=== PATIENT | female | born 1980 | race Hispanic/Latino ===

== ENCOUNTER 2022-09-10 12:36 | Emergency (ER) | payer OTHER ==
[2022-09-10] MEDS ORDERED: IBUPROFEN 400 MG TAB ONE (13:27)
--- NOTE | 2022-09-10 14:01 | RAD REPORT ---
EXAM DESCRIPTION: RAD - Ankle Left 3 View -09/10/2022 1:43 pm CLINICAL HISTORY: Left ankle pain FINDINGS: No fracture or dislocation is seen. 10 millimeter calcification within the posterior subcutaneous tissues upper ankle likely benign
--- NOTE | 2022-09-10 14:03 | RAD REPORT ---
EXAM DESCRIPTION: RAD - Foot Left 3 View - 09/10/2022 1:43 pm CLINICAL HISTORY: Left Foot pain FINDINGS: No fracture or dislocation is seen. Small spur extends off posterior calcaneus
--- OUTSIDE RECORDS SUMMARY | 2022-09-10 14:19 | XMS REPORT | Continuity of Care Document ---
:1980 Author Organization [facility] t Address [address] [place] [address] Care Team Providers Name Role Phone Shekhar Crowell Attending Clinician Unavailable Cassidy Kerns Attending Clinician Unavailable Shekhar Crowell Admitting Clinician Unavailable Payers Payer Name Policy Type Policy Number Effective Date Expiration Date S [employer] [place] P [id number] 2020 00:00:00 Women(HTW) Problems This patient has no known problems. Allergies, Adverse Reactions, Alerts Allergy Allergy Status Severity Reaction(s) Onset Inactive Treating Comm ents Source Name Type Date Date Clinician No Known DA Active U [facility]18 [facility] 00:00: e [address] [place] [address] No Known DA Active U 2017-08 [facility]07 [place] [facility] 00:[facility]: [place] 00 [facility] No Known DA Active U [facility] 3-19 [facility] 00:00: e 00 [facility] Medications This patient has no known medications. Procedures Procedure Date / Time Performed Performing Clinician Buddy bethea [id number] 2021-08-24 00:00:00 [email or web address] [facility] [id number] 2021-08-24 00:00:00 [email or web address] [facility] [id number] 2021-08-24 00:00:00 [email or web address] [facility] [id number] 2021-08-24 00:00:00 [email or web address] [facility] Encounters Start End Encounter Admission Attending Care Care Encounter Source Date/Time Date/Time Type Type Clinicians Facility Department ID 2021-08-16 Outpatient [facility] [id number] [facility] 05:04:35 [facility] 2021-05-23 Outpatient [facility] [id number] [facility] 13:47:14 [id number] [facility] 2021-05-23 Outpatient [facility] [id number] [facility] 08:42:29 [id number] [facility] 2021-05-20 Outpatient [facility] [id number] [facility] 21:09:35 [id number] [facility] 2021-10-08 2021-10-08 Outpatient JIE Boateng DAYS [id number] [facility] 06:19:00 06:19:00 Shekhar Kaur [facility] 2021-08-24 2021-08-25 Inpatient JIE Boateng OBPP [id number] [facility] 06:48:00 18:08:00 Shekhar 98 [facility] 2020-09-18 2020-09-18 Office Luis F [facility] Encounter / [facility] 00:00:00 00:00:00 Visit Cassidy [id number] [facility] ramona [id number] [facility] Results Test Description Test Time Test Comments Results Result Comments Source CBC W/AUTO DIFF 2021-10-08 08:33:00 Test Item Value Reference Range Interpretation Comme nts WHITE BLOOD CELL (test code = WBC) 5.6 K/mm3 4.5-12.5 N RED BLOOD CELL (test code = RBC) 4.85 mill/mm3 3.7-5.2 N HEMOGLOBIN (test code = HGB) 10.8 gram/dL 11.5-15.5 L HEMATOCRIT (test code = HCT) 34.8 % 36.0-46.0 L MEAN CELL VOLUME (test code = MCV) 71.8 fL 80-98 L MEAN CELL HGB (test code = MCH) 22.3 picogram 27.0-33.0 L MEAN CELL HGB CONCETRATION (test code = MCHC) 31.0 gram/dL 33.0-36. 0 L RED CELL DISTRIBUTION WIDTH (test code = RDW) 22.8 % 11.6-16. 2 H RED CELL DISTRIBUTION WIDTH SD (test code = 57.6 fL 37.0-51.0 H RDW-SD) PLATELET COUNT (test code = PLT) 243 K/mm3 150-450 N MEAN PLATELET VOLUME (test code = MPV) 9.9 fL 6.7-11.0 N NEUTROPHIL % (test code = NT%) 57.6 % 39.0-69.0 N IMMATURE GRANULOCYTE % (test code = IG%) 0.2 % 0.0-5.0 N LYMPHOCYTE % (test code = LY%) 35.5 % 25.0-55.0 N MONOCYTE % (test code = MO%) 5.3 % 0.0-10.0 N EOSINOPHIL % (test code = EO%) 0.9 % 0.0-5.0 N BASOPHIL % (test code = BA%) 0.5 % 0.0-1.0 N NUCLEATED RBC % (test code = NRBC%) 0.0 % 0-0 N NEUTROPHIL # (test code = NT#) 3.23 K/mm3 1.8-7.7 N IMMATURE GRANULOCYTE # (test code = IG#) 0.01 x10 3/uL 0-0.03 N LYMPHOCYTE # (test code = LY#) 1.99 K/mm3 1.0-5.0 N MONOCYTE # (test code = MO#) 0.30 K/mm3 0-0.8 N EOSINOPHIL # (test code = EO#) 0.05 K/mm3 0.0-0.5 N BASOPHIL # (test code = BA#) 0.03 K/mm3 0.0-0.2 N NUCLEATED RBC # (test code = NRBC#) 0.00 K/mm3 0.0-0.1 N MANUAL DIFF REQUIRED (test code = MDIFF) NO, ONLY SCAN NEEDED DIFFERENTIAL [id number] 08:33:00 Test Item Value Reference Range Interpretation Comments STAIN ACCEPTABILITY (test STAIN ACCEPTABLE code = STN ACCEPTABLE) CABOT RINGS (test code = CAB) MORPHOLOGY COMMENT (test NORMAL code = MOC) PLATELET ESTIMATE (test code ADEQUATE = PLTEST) PLATELET MORPHOLOGY (test SIZE VARIABLE code = PLTMORPH) POLYCHROMASIA (test code = 1+ POLC) HYPOCHROMIA (test code = 1+ HYPO) POIKILOCYTOSIS (test code = 1+ POIK) ANISOCYTOSIS (test code = 2+ ANISO) MICROCYTOSIS (test code = 2+ MICR) HCG SERUM [id number] 07:55:00 Test Item Value Reference Range Interpretation Comments HCG SERUM QUAL (test NEGATIVE NEGATIVE This HC GQL test is NOT code = HCGQL) applicable for MALE patients.Check with nurse about probable order error.If Tumor Marker Test needed, nu rse should order test "HCG TU"(Test #[id number])---- - COVID 19 Asymptomatic IH [id number] 06:38:00 Test Item Value Reference Range Interpretation Comments COVID 19 Asymptomatic IH AG (test NEGATIVE NEGATIVE code = COVNONPUIAG) CBC W/AUTO [id number] 06:38:00 Test Item Value Reference Range Interpretation Comments WHITE BLOOD CELL (test code = 7.8 K/mm3 4.5-12.5 N WBC) RED BLOOD CELL (test code = 3.77 mill/mm3 3.7-5.2 N RBC) HEMOGLOBIN (test code = HGB) 7.9 gram/dL 11.5-15.5 L HEMATOCRIT (test code = HCT) 25.8 % 36.0-46.0 L MEAN CELL VOLUME (test code = 68.4 fL 80-98 L MCV) MEAN CELL HGB (test code = MCH) 21.0 picogram 27.0-33.0 L MEAN CELL HGB CONCETRATION 30.6 gram/dL 33.0-36.0 L (test code = MCHC) RED CELL DISTRIBUTION WIDTH 17.4 % 11.6-16.2 H (test code = RDW) RED CELL DISTRIBUTION WIDTH SD 42.9 fL 37.0-51.0 N (test code = RDW-SD) PLATELET COUNT (test code = 181 K/mm3 150-450 N PLT) MEAN PLATELET VOLUME (test code 11.6 fL 6.7-11.0 H = MPV) NEUTROPHIL % (test code = NT%) 73.3 % 39.0-69.0 H IMMATURE GRANULOCYTE % (test 0.3 % 0.0-5.0 N code = IG%) LYMPHOCYTE % (test code = LY%) 20.5 % 25.0-55.0 L MONOCYTE % (test code = MO%) 5.0 % 0.0-10.0 N EOSINOPHIL % (test code = EO%) 0.5 % 0.0-5.0 N BASOPHIL % (test code = BA%) 0.4 % 0.0-1.0 N NUCLEATED RBC % (test code = 0.0 % 0-0 N NRBC%) NEUTROPHIL # (test code = NT#) 5.73 K/mm3 1.8-7.7 N IMMATURE GRANULOCYTE # (test 0.02 x10 3/uL 0-0.03 N code = IG#) LYMPHOCYTE # (test code = LY#) 1.60 K/mm3 1.0-5.0 N MONOCYTE # (test code = MO#) 0.39 K/mm3 0-0.8 N EOSINOPHIL # (test code = EO#) 0.04 K/mm3 0.0-0.5 N BASOPHIL # (test code = BA#) 0.03 K/mm3 0.0-0.2 N NUCLEATED RBC # (test code = 0.00 K/mm3 0.0-0.1 N NRBC#) MANUAL DIFF REQUIRED (test code NO = MDIFF) SPECIMEN COMMENTS: day 1HIV 1 2 COMBO AG/AB [id number] 10:06:00 Test Item Value Reference Range Interpretation Comments HIV 1 2 COMBO AB/AG NON NONREACTIVE NONREACTIVE H IV P24 AG/AB SCREEN REACTIVE ANTIGEN NONREAC TIVE (test code = NONREACTIVE HIV 1&2 [id number]) ANTIBODY NONREA CTIVE THE HIV-1 P24 T EST HELPS DISTINGUI SH ACUTE HIV-1INFECTIONF ROM ESTABLISHED HIV -1 INFECTION WHEN THE SPECIMEN ISPOSI TIVE FOR HIV-1 P24 A NTIGEN. HIV-1 P24 ANTIG EN IS HIGHEST IN THE FIRST FEW WEEKS AFTERINFECTION AG HEPAT B [id number] 09:40:00 Test Item Value Reference Range Interpretation Comments AG HEPAT B SURF (test code NonReactive Index Nonreactive = HBSAG) URINALYSIS [id number] 09:11:00 Test Item Value Reference Range Interpretation Comments UA COLOR (test code = YELLOW YELLOW COLU) UA APPEARANCE (test code = CLOUDY CLEAR A APPU) UA GLUCOSE DIPSTICK (test NEGATIVE mg/dL NEGATIVE code = DGLUU) UA BILIRUBIN DIPSTICK NEGATIVE NEGATIVE (test code = BILU) UA KETONE DIPSTICK (test NEGATIVE mg/dL NEGATIVE code = KETU) UA SPECIFIC GRAVITY (test >=1.030 1.001-1.035 code = SGU) UA BLOOD DIPSTICK (test TRACE NEGATIVE code = JOSH) UA PH DIPSTICK (test code 6.0 5.0-8.0 = DC) UA PROTEIN DIPSTICK (test TRACE (15) mg/dL Neg-15 code = PROU) UA UROBILINIOGEN DIPSTICK 1 mg/dL (1+) mg/dL 0.0-0.2 (test code = URO) UA NITRITE DIPSTICK (test NEGATIVE NEGATIVE code = JACOB) UA LEUKOCYTE ESTERASE W 2+ NEGATIVE A REFLEX (test code = LEUUR) UA WBC (test code = WBCU) 5-10 per HPF 0-5 A UA RBC (test code = RBCU) 0-3 per HPF 0-5 UA EPITHELIAL CELLS (test per HPF Few code = EPIU) UA BACTERIA (test code = MODERATE per HPF NONE A BACU) AG HEPAT B [id number] 12:18:00 Test Item Value Reference Range Interpretation Comments AG HEPAT B SURF (test code NonReactive Index Nonreactive = HBSAG) AB [id number] 12:18:00 Test Item Value Reference Range Interpretation Comments AB TREPONEMA (test code = Negative Index NonReactive TREPAB) COVID 19 Asymptomatic IH [id number] 11:48:00 Test Item Value Reference Range Interpretation Comments COVID 19 Asymptomatic IH AG (test NEGATIVE NEGATIVE code = COVNONPUIAG) CBC W/AUTO [id number] 11:37:00 Test Item Value Reference Range Interpretation Comments WHITE BLOOD CELL (test code = 7.4 K/mm3 4.5-12.5 N WBC) RED BLOOD CELL (test code = 4.54 mill/mm3 3.7-5.2 N RBC) HEMOGLOBIN (test code = HGB) 9.5 gram/dL 11.5-15.5 L HEMATOCRIT (test code = HCT) 31.7 % 36.0-46.0 L MEAN CELL VOLUME (test code = 69.8 fL 80-98 L MCV) MEAN CELL HGB (test code = MCH) 20.9 picogram 27.0-33.0 L MEAN CELL HGB CONCETRATION 30.0 gram/dL 33.0-36.0 L (test code = MCHC) RED CELL DISTRIBUTION WIDTH 17.4 % 11.6-16.2 H (test code = RDW) RED CELL DISTRIBUTION WIDTH SD 43.8 fL 37.0-51.0 N (test code = RDW-SD) PLATELET COUNT (test code = 216 K/mm3 150-450 N PLT) MEAN PLATELET VOLUME (test code 10.4 fL 6.7-11.0 N = MPV) NEUTROPHIL % (test code = NT%) 69.2 % 39.0-69.0 H IMMATURE GRANULOCYTE % (test 0.3 % 0.0-5.0 N code = IG%) LYMPHOCYTE % (test code = LY%) 25.2 % 25.0-55.0 N MONOCYTE % (test code = MO%) 4.5 % 0.0-10.0 N EOSINOPHIL % (test code = EO%) 0.5 % 0.0-5.0 N BASOPHIL % (test code = BA%) 0.3 % 0.0-1.0 N NUCLEATED RBC % (test code = 0.0 % 0-0 N NRBC%) NEUTROPHIL # (test code = NT#) 5.09 K/mm3 1.8-7.7 N IMMATURE GRANULOCYTE # (test 0.02 x10 3/uL 0-0.03 N code = IG#) LYMPHOCYTE # (test code = LY#) 1.85 K/mm3 1.0-5.0 N MONOCYTE # (test code = MO#) 0.33 K/mm3 0-0.8 N EOSINOPHIL # (test code = EO#) 0.04 K/mm3 0.0-0.5 N BASOPHIL # (test code = BA#) 0.02 K/mm3 0.0-0.2 N NUCLEATED RBC # (test code = 0.00 K/mm3 0.0-0.1 N NRBC#) MANUAL DIFF REQUIRED (test code NO = MDIFF) LACTIC [id number] 16:15:00 Test Item Value Reference Range Interpretation Comments LACTIC ACID (test code = LACT) 1.2 mmol/L 0.4-1.9 N COMPREHENSIVE METABOLIC [id number] 16:03:00 Test Item Value Reference Range Interpretation Comments SODIUM (test code = 139 mmol/L 135-148 N NA) POTASSIUM (test code = 3.8 mmol/L 3.5-5.1 N K) CHLORIDE (test code = 102 mmol/L 101-109 N CL) CARBON DIOXIDE (test 27.0 mmol/L 21-32 N code = CO2) ANION GAP (test code = 14 mmol/L 10-20 N GAP) GLUCOSE (test code = 92 mg/dL 74-106 N GLU) BLOOD UREA NITROGEN 9 mg/dL 3-21 N (test code = BUN) CREATININE (test code 0.79 mg/dL 0.55-1.3 N = CREAT) BUN/CREATININE RATIO 11.4 10-20 N (test code = BUN/CREA) TOTAL PROTEIN (test 7.6 g/dL 6.5-8.4 N code = PROT) ALBUMIN (test code = 3.5 g/dL 3.4-4.8 N ALB) GLOBULIN (test code = 4.1 G/DL 1-10 N GLOB) ALBUMIN/GLOBULIN RATIO 0.9 RATIO 0.75-1.50 N (test code = A/G) CALCIUM (test code = 8.3 mg/dL 8.4-10.2 L CA) BILIRUBIN TOTAL (test 0.60 mg/dL 0.0-1.0 N code = BILT) SGOT/AST (test code = 11 U/L 6-32 N AST) SGPT/ALT (test code = 16 U/L 12-78 N Note: Change in ALT) REFERENCE RANGE due to new reagent method. ALKALINE PHOSPHATASE 60 U/L 38-126 N TOTAL (test code = ALKP) [id number] 16:03:00 Test Item Value Reference Range Interpretation Comments LIPASE (test code = LIP) 135 U/L 128-270 N URINALYSIS [id number] 16:00:00 Test Item Value Reference Range Interpretation Comments UA COLOR (test code = LIGHT YELLOW YELLOW COLU) UA APPEARANCE (test code Cloudy CLEAR A = APPU) UA GLUCOSE DIPSTICK (test norm mg/dL NEGATIVE code = DGLUU) UA BILIRUBIN DIPSTICK NEGATIVE mg/dL NEGATIVE (test code = BILU) UA KETONE DIPSTICK (test neg mg/dL NEGATIVE code = KETU) UA SPECIFIC GRAVITY (test 1.015 1.001-1.035 code = SGU) UA BLOOD DIPSTICK (test 10 (Trace) Lc/uL NEGATIVE A code = JOSH) UA PH DIPSTICK (test code 9.0 5.0-8.0 A = DC) UA PROTEIN DIPSTICK (test 30 (1+) mg/dL Neg-15 A code = PROU) UA UROBILINIOGEN DIPSTICK 1 mg/dL 0.0-0.2 A (test code = URO) UA NITRITE DIPSTICK (test POSITIVE NEGATIVE code = JACOB) UA LEUKOCYTE ESTERASE 500 Neal/uL (3+) uL NEGATIVE A DIPSTICK (test code = LEUU) UA WBC (test code = WBCU) 40-50 per HPF 0-5 A UA RBC (test code = RBCU) 0-3 per HPF 0-5 UA EPITHELIAL CELLS (test Few (2-5/hpf) per Few code = EPIU) HPF UA BACTERIA (test code = LOADED per HPF NONE A BACU) UA MUCUS (test code = FEW per LPF NONE-FEW MUCU) Urine Source? Clean CatchUR HCG [id number] 16:00:00 Test Item Value Reference Range Interpretation Comments UR HCG QUAL (test NEGATIVE This HCGQL test is NOT code = HCGQLU) applicable fo r MALE patients.Check with nurse about probable order error.If Tumor Marker Test needed, nu rse should order test "HCG TU"(Test #[id number])---- - Urine Source? Clean CatchDRUGS OF ABUSE SCREEN [id number] 16:00:00 Test Item Value Reference Range Interpretation Comments URN COCAINE (test code = COCAURN) NEGATIVE NEGATIVE URN CANNABINOIDS (test code = NEGATIVE NEGATIVE CANNABURN) URN AMPHETAMINE (test code = NEGATIVE NEGATIVE AMPHETURN) URN BARBITURATE (test code = NEGATIVE NEGATIVE BARBITURN) URN BENZODIAZEPINE (test code = NEGATIVE NEGATIVE BENZOURN) URN OPIATES (test code = OPIATURN) NEGATIVE NEGATIVE URN PHENCYCLIDINE (PCP) (test code = NEGATIVE NEGATIVE PHENCURN) Urine Source? Clean CatchURINALYSIS [id number] 15:57:00 Test Item Value Reference Range Interpretation Comments UA COLOR (test code = LIGHT YELLOW YELLOW COLU) UA APPEARANCE (test code Cloudy CLEAR A = APPU) UA GLUCOSE DIPSTICK (test norm mg/dL NEGATIVE code = DGLUU) UA BILIRUBIN DIPSTICK NEGATIVE mg/dL NEGATIVE (test code = BILU) UA KETONE DIPSTICK (test neg mg/dL NEGATIVE code = KETU) UA SPECIFIC GRAVITY (test 1.015 1.001-1.035 code = SGU) UA BLOOD DIPSTICK (test 10 (Trace) Lc/uL NEGATIVE A code = JOSH) UA PH DIPSTICK (test code 9.0 5.0-8.0 A = DC) UA PROTEIN DIPSTICK (test 30 (1+) mg/dL Neg-15 A code = PROU) UA UROBILINIOGEN DIPSTICK 1 mg/dL 0.0-0.2 A (test code = URO) UA NITRITE DIPSTICK (test POSITIVE NEGATIVE code = JACOB) UA LEUKOCYTE ESTERASE 500 Neal/uL (3+) uL NEGATIVE A DIPSTICK (test code = LEUU) UA WBC (test code = WBCU) 40-50 per HPF 0-5 A UA RBC (test code = RBCU) 0-3 per HPF 0-5 UA EPITHELIAL CELLS (test Few (2-5/hpf) per Few code = EPIU) HPF UA BACTERIA (test code = LOADED per HPF NONE A BACU) UA MUCUS (test code = FEW per LPF NONE-FEW MUCU) Urine Source? Clean CatchUR HCG [id number] 15:57:00 Test Item Value Reference Range Interpretation Comments UR HCG QUAL (test NEGATIVE This HCGQL test is NOT code = HCGQLU) applicable fo r MALE patients.Check with nurse about probable order error.If Tumor Marker Test needed, nu rse should order test "HCG TU"(Test #[id number])---- - Urine Source? Clean CatchDRUGS OF ABUSE SCREEN [id number] 15:57:00 Test Item Value Reference Range Interpretation Comments URN COCAINE (test code = COCAURN) NEGATIVE URN CANNABINOIDS (test code = NEGATIVE CANNABURN) URN AMPHETAMINE (test code = AMPHETURN) NEGATIVE URN BARBITURATE (test code = BARBITURN) NEGATIVE URN BENZODIAZEPINE (test code = NEGATIVE BENZOURN) URN OPIATES (test code = OPIATURN) NEGATIVE URN PHENCYCLIDINE (PCP) (test code = NEGATIVE PHENCURN) Urine Source? Clean CatchURINALYSIS [id number] 15:48:00 Test Item Value Reference Range Interpretation Comments UA COLOR (test code = LIGHT YELLOW YELLOW COLU) UA APPEARANCE (test code = Cloudy CLEAR A APPU) UA GLUCOSE DIPSTICK (test norm mg/dL NEGATIVE code = DGLUU) UA BILIRUBIN DIPSTICK NEGATIVE mg/dL NEGATIVE (test code = BILU) UA KETONE DIPSTICK (test neg mg/dL NEGATIVE code = KETU) UA SPECIFIC GRAVITY (test 1.015 1.001-1.035 code = SGU) UA BLOOD DIPSTICK (test 10 (Trace) Lc/uL NEGATIVE A code = JOSH) UA PH DIPSTICK (test code 9.0 5.0-8.0 A = DC) UA PROTEIN DIPSTICK (test 30 (1+) mg/dL Neg-15 A code = PROU) UA UROBILINIOGEN DIPSTICK 1 mg/dL 0.0-0.2 A (test code = URO) UA NITRITE DIPSTICK (test POSITIVE NEGATIVE code = JACOB) UA LEUKOCYTE ESTERASE 500 Neal/uL (3+) uL NEGATIVE A DIPSTICK (test code = LEUU) UA WBC (test code = WBCU) per HPF 0-5 UA RBC (test code = RBCU) per HPF 0-5 UA EPITHELIAL CELLS (test per HPF Few code = EPIU) UA BACTERIA (test code = per HPF NONE BACU) Urine Source? Clean CatchUR HCG [id number] 15:48:00 Test Item Value Reference Range Interpretation Comments UR HCG QUAL (test NEGATIVE This HCGQL test is NOT code = HCGQLU) applicable fo r MALE patients.Check with nurse about probable order error.If Tumor Marker Test needed, nu rse should order test "HCG TU"(Test #[id number])---- - Urine Source? Clean CatchDRUGS OF ABUSE SCREEN [id number] 15:48:00 Test Item Value Reference Range Interpretation Comments URN COCAINE (test code = COCAURN) NEGATIVE URN CANNABINOIDS (test code = NEGATIVE CANNABURN) URN AMPHETAMINE (test code = AMPHETURN) NEGATIVE URN BARBITURATE (test code = BARBITURN) NEGATIVE URN BENZODIAZEPINE (test code = NEGATIVE BENZOURN) URN OPIATES (test code = OPIATURN) NEGATIVE URN PHENCYCLIDINE (PCP) (test code = NEGATIVE PHENCURN) Urine Source? Clean CatchURINALYSIS [id number] 15:47:00 Test Item Value Reference Range Interpretation Comments UA COLOR (test code = LIGHT YELLOW YELLOW COLU) UA APPEARANCE (test code = Cloudy CLEAR A APPU) UA GLUCOSE DIPSTICK (test norm mg/dL NEGATIVE code = DGLUU) UA BILIRUBIN DIPSTICK NEGATIVE mg/dL NEGATIVE (test code = BILU) UA KETONE DIPSTICK (test neg mg/dL NEGATIVE code = KETU) UA SPECIFIC GRAVITY (test 1.015 1.001-1.035 code = SGU) UA BLOOD DIPSTICK (test 10 (Trace) Lc/uL NEGATIVE A code = JOSH) UA PH DIPSTICK (test code 9.0 5.0-8.0 A = DC) UA PROTEIN DIPSTICK (test 30 (1+) mg/dL Neg-15 A code = PROU) UA UROBILINIOGEN DIPSTICK 1 mg/dL 0.0-0.2 A (test code = URO) UA NITRITE DIPSTICK (test POSITIVE NEGATIVE code = JACOB) UA LEUKOCYTE ESTERASE 500 Neal/uL (3+) uL NEGATIVE A DIPSTICK (test code = LEUU) UA WBC (test code = WBCU) per HPF 0-5 UA RBC (test code = RBCU) per HPF 0-5 UA EPITHELIAL CELLS (test per HPF Few code = EPIU) UA BACTERIA (test code = per HPF NONE BACU) Urine Source? Clean CatchUR HCG [id number] 15:47:00 Test Item Value Reference Range Interpretation Comments UR HCG QUAL (test code = HCGQLU) Urine Source? Clean CatchDRUGS OF ABUSE SCREEN [id number] 15:47:00 Test Item Value Reference Range Interpretation Comments URN COCAINE (test code = COCAURN) NEGATIVE URN CANNABINOIDS (test code = NEGATIVE CANNABURN) URN AMPHETAMINE (test code = AMPHETURN) NEGATIVE URN BARBITURATE (test code = BARBITURN) NEGATIVE URN BENZODIAZEPINE (test code = NEGATIVE BENZOURN) URN OPIATES (test code = OPIATURN) NEGATIVE URN PHENCYCLIDINE (PCP) (test code = NEGATIVE PHENCURN) Urine Source? Clean CatchCBC W/AUTO [id number] 15:43:00 Test Item Value Reference Range Interpretation Comments WHITE BLOOD CELL (test code = 11.8 K/mm3 4.5-12.5 N WBC) RED BLOOD CELL (test code = 4.64 mill/mm3 3.7-5.2 N RBC) HEMOGLOBIN (test code = HGB) 11.2 gram/dL 11.5-15.5 L HEMATOCRIT (test code = HCT) 35.2 % 36.0-46.0 L MEAN CELL VOLUME (test code = 75.9 fL 80-98 L MCV) MEAN CELL HGB (test code = MCH) 24.1 picogram 27.0-33.0 L MEAN CELL HGB CONCETRATION 31.8 gram/dL 33.0-36.0 L (test code = MCHC) RED CELL DISTRIBUTION WIDTH 15.0 % 11.6-16.2 N (test code = RDW) RED CELL DISTRIBUTION WIDTH SD 41.0 fL 37.0-51.0 N (test code = RDW-SD) PLATELET COUNT (test code = 272 K/mm3 150-450 N PLT) MEAN PLATELET VOLUME (test code 10.7 fL 6.7-11.0 N = MPV) NEUTROPHIL % (test code = NT%) 84.5 % 39.0-69.0 H LYMPHOCYTE % (test code = LY%) 10.0 % 25.0-55.0 L MONOCYTE % (test code = MO%) 4.6 % 0.0-10.0 N EOSINOPHIL % (test code = EO%) 0.3 % 0.0-5.0 N BASOPHIL % (test code = BA%) 0.3 % 0.0-1.0 N NEUTROPHIL # (test code = NT#) 9.92 K/mm3 1.8-7.7 H LYMPHOCYTE # (test code = LY#) 1.17 K/mm3 1.0-5.0 N MONOCYTE # (test code = MO#) 0.54 K/mm3 0-0.8 N EOSINOPHIL # (test code = EO#) 0.04 K/mm3 0.0-0.5 N BASOPHIL # (test code = BA#) 0.04 K/mm3 0.0-0.2 N MANUAL DIFF REQUIRED (test code NO = MDIFF)
--- NOTE | 2022-09-10 14:49 | ER ---
Nurse's Notes [facility] Name: Coby Rueda Age: 42 yrs Sex: Female : 1980 Arrival Date: 09/10/2022 Time: 12:39 Bed 5 Private MD: Diagnosis: Sprain of ankle Presentation: 09/10 12:42 Chief complaint: Rolled left ankle while walking this morning, c/o left ankle pain hb 9/10. Coronavirus screen: At this time, the client does not indicate any symptoms associated with coronavirus-19. Ebola Screen: No symptoms or risks identified at this time. Initial Sepsis Screen: Does the patient meet any 2 criteria? No. Patient's initial sepsis screen is negative. Does the patient have a suspected source of infection? No. Patient's initial sepsis screen is negative. Risk Assessment: Do you want to hurt yourself or someone else? Patient reports no desire to harm self or others. Onset of symptoms was September 10, 2022. 12:42 Method Of Arrival: Ambulatory hb 12:42 Acuity: KIERRA 4 hb Triage Assessment: 13:15 General: Appears in no apparent distress. uncomfortable, Behavior is calm, cooperative, bp appropriate for age. Pain: Complains of pain in left lateral ankle. EENT: No deficits noted. Neuro: No deficits noted. Cardiovascular: No deficits noted. Respiratory: No deficits noted. GI: No signs and/or symptoms were reported involving the gastrointestinal system. : No signs and/or symptoms were reported regarding the genitourinary system. Derm: No deficits noted. Musculoskeletal: Circulation, motion, and sensation intact. Reports pain in left lateral ankle. Historical: - Allergies: 12:44 No Known Allergies; hb - Home Meds: 12:44 None [Active]; hb - PMHx: 12:44 None; hb - PSHx: 12:44 None; hb - Immunization history:: Adult Immunizations up to date. - Social history:: Smoking status: Patient reports the use of cigarette tobacco products, smokes one-half pack cigarettes per day. Screenin:28 [facility] ED Fall Risk Assessment (Adult) History of falling in the last 3 months, bp including since admission No falls in past 3 months (0 pts). Abuse screen: Denies threats or abuse. Denies injuries from another. Nutritional screening: No deficits noted. Tuberculosis screening: No symptoms or risk factors identified. Assessment: 13:15 General: SEE TRIAGE NOTE. bp 15:03 Reassessment: PT DC HOME WITH FAMILY. bp Vital Signs: 12:42 BP 139 / 83; Pulse 102; Resp 16; Temp 98.3; Pulse Ox 98% on R/A; Weight 85.73 kg; hb Height 5 ft. 4 in. (162.56 cm); Pain 9/10; 15:03 BP 129 / 81; Pulse 92; Resp 16; Pulse Ox 98% ; bp 12:42 Body Mass Index 32.44 (85.73 kg, 162.56 cm) hb ED Course: 12:39 Patient arrived in ED. as 12:41 Juwan Chavez PA is PHCP. [facility] 12:41 Roney Hope MD is Attending Physician. [facility] 12:44 Triage completed. hb 12:44 Arm band placed on. hb 13:17 Samuel Dong, EV is Primary Nurse. ll1 13:26 Kiran Correa, EV is Primary Nurse. bp 13:28 Patient has correct armband on for positive identification. Bed in low position. Call bp light in reach. Side rails up X2. 13:45 Ankle Left 3 View XRAY In Process Unspecified. EDMS 13:45 Foot Left 3 View XRAY In Process Unspecified. EDMS 14:48 Conor Tovar MD is Referral Physician. [facility] 15:03 No provider procedures requiring assistance completed. Patient did not have IV access bp during this emergency room visit. Administered Medications: 13:25 Drug: Ibuprofen 800 mg Route: PO; bp 14:37 Follow up: Response: No adverse reaction; Pain is decreased ll1 Medication: 15:03 VIS not applicable for this client. bp Outcome: 14:48 Discharge ordered by . jmm 15:03 Discharged to home ambulatory. bp 15:03 Condition: stable 15:03 Discharge instructions given to patient, Instructed on discharge instructions, follow up and referral plans. medication usage, crutch walking, Demonstrated understanding of instructions, follow-up care, medications, crutch walking, Prescriptions given X 2. 15:05 Patient left the ED. bp Signatures: Dispatcher [employer] EDMS Juwan Chavez PA PA Antonietta Mcbride Heather, RN RN hb Kiran Correa RN RN bp Samuel Dong, RN RN ll1
--- NOTE | 2022-09-10 14:49 | EDPHYS ---
Physician Documentation [facility] Name: Coby Mohit Age: 42 yrs Sex: Female : 1980 Arrival Date: 09/10/2022 Time: 12:39 Bed 5 Private MD: ED Physician Roney Hope Historical: - Allergies: 09/10 12:44 No Known Allergies; hb - Home Meds: 12:44 None [Active]; hb - PMHx: 12:44 None; hb - PSHx: 12:44 None; hb - Immunization history:: Adult Immunizations up to date. - Social history:: Smoking status: Patient reports the use of cigarette tobacco products, smokes one-half pack cigarettes per day. Vital Signs: 12:42 BP 139 / 83; Pulse 102; Resp 16; Temp 98.3; Pulse Ox 98% on R/A; Weight 85.73 kg; hb Height 5 ft. 4 in. (162.56 cm); Pain 9/10; 15:03 BP 129 / 81; Pulse 92; Resp 16; Pulse Ox 98% ; bp 12:42 Body Mass Index 32.44 (85.73 kg, 162.56 cm) hb MDM: 12:48 Patient medically screened. [facility] 14:47 Data reviewed: vital signs, nurses notes. Independent interpretation of the following [facility] test(s) in the Emergency Department X-Ray: My interpretation is no fracture appreciated. Counseling: I had a detailed discussion with the patient and/or guardian regarding: the historical points, exam findings, and any diagnostic results supporting the discharge/admit diagnosis, radiology results, the need for outpatient follow up, to return to the emergency department if symptoms worsen or persist or if there are any questions or concerns that arise at home. 09/10 12:45 Order name: Ankle Left 3 View XRAY; Complete Time: 14:02 09/10 12:48 Order name: Foot Left 3 View XRAY; Complete Time: 14:03 [facility] 09/10 12:48 Order name: Ice pack; Complete Time: 13:25 [facility] 09/10 14:22 Order name: Hussain wrap-joint; Complete Time: 14:37 [facility] 09/10 14:22 Order name: Crutches; Complete Time: 14:37 [facility] Administered Medications: 13:25 Drug: Ibuprofen 800 mg Route: PO; bp 14:37 Follow up: Response: No adverse reaction; Pain is decreased ll1 Disposition Summary: 09/10/22 14:48 Discharge Ordered Location: Home [facility] Condition: Stable [facility] Diagnosis - Sprain of ankle [facility] Followup: [facility] - With: Conor Tovar MD - When: 2 - 3 days - Reason: Recheck today's complaints, Continuance of care, Re-evaluation by your physician Discharge Instructions: - Ankle Sprain [facility] - Discharge Summary Sheet iw Forms: - Medication Reconciliation Form [facility] - Thank You Letter [facility] - Work release form iw - Antibiotic Education [facility] - Prescription Opioid Use [facility] Prescriptions: - Diclofenac Sodium 75 mg Oral Tablet Sustained Release - take 1 tablet by ORAL route 2 times per day; 30 tablet; Refills: 0, Product [facility] Selection Permitted - orphenadrine citrate 100 mg Oral Tablet Sustained Release - take 1 tablet by ORAL route 2 times per day As needed; 20 tablet; Refills: 0, [facility] Product Selection Permitted Signatures: Dispatcher [employer] Juwan Mcknight PA PA Annie Soriano, RN RN Kiran Correa, EV RN Samuel Reyez RN ll1
[2022-09-10 15:12] VITALS: TEMP 98.3; O2SAT 98
[2022-09-10 15:14] VITALS: BP 129/81
== END 2022-09-10 15:05 | disposition home or self-care (01) ==
LOC: ER 12:36
DX: S93.402A Sprain of unspecified ligament of left ankle, initial encounter (principal); F17.210 Nicotine dependence, cigarettes, uncomplicated
CPT/HCPCS: 99284

== ENCOUNTER 2023-01-18 21:34 | Emergency (ER) | payer OTHER ==
--- OUTSIDE RECORDS SUMMARY | 2023-01-18 21:38 | XMS REPORT | Continuity of Care Document ---
:1980 Author Organization [facility] t Address [address] [facility] [address] [place] [address] Care Team Providers Name Role Phone Shekhar Crowell Attending Clinician Unavailable Cassidy Kerns Attending Clinician Unavailable Shekhar Crowell Admitting Clinician Unavailable Payers Payer Name Policy Type Policy Number Effective Date Expiration Date S ourcl [employer] [place] P [id number] 2020 00:00:00 Women(HTW) Problems This patient has no known problems. Allergies, Adverse Reactions, Alerts Allergy Allergy Status Severity Reaction(s) Onset Inactive Treating Comm ents Source Name Type Date Date Clinician No Known DA Active U [facility]18 [facility] 00:00: e 00 [facility] No Known DA Active U 2017-08 [facility]07 [place] [facility] 00:[place]: [place] 00 [facility] No Known DA Active U [facility] 3-19 [facility] 00:[facility]: e 00 [facility] Medications This patient has no known medications. Procedures Procedure Date / Time Performed Performing Clinician Danya neema [id number] 2021-08-24 00:00:00 [facility]CA.02 [facility] [id number] 2021-08-24 00:00:00 [facility]CA.02 [facility] [id number] 2021-08-24 00:00:00 [facility]02 [facility] [id number] 2021-08-24 00:00:00 HERCA.02 [facility] Encounters Start End Encounter Admission Attending Care Care Encounter Source Date/Time Date/Time Type Type Clinicians Facility Department ID 2021-08-16 Outpatient [facility] [id number] [facility] 05:04:35 [facility] 2021-05-23 Outpatient [facility] [id number] [facility] 13:47:14 [id number] [facility] 2021-05-23 Outpatient [facility] [id number] [facility] 08:42:29 [id number] [facility] 2021-05-20 Outpatient [facility] [id number] [facility] 21:09:35 [id number] [facility] 2021-10-08 2021-10-08 Outpatient JIE Boateng DAYS [id number] [facility] 06:19:00 06:19:00 Shekhar Natasha [facility] 2021-08-24 2021-08-25 Inpatient AMBROCIO Boateng OBPP [id number] [facility] 06:48:00 18:08:00 Shekhar 98 [facility] 2020-09-18 2020-09-18 Office Luis F [facility] Encounter / [facility] 00:00:00 00:00:00 Visit Cassidy [id number] [facility] [id number] [facility] Results Test Description Test Time Test Comments [...] = MDIFF) NO, ONLY SCAN NEEDED DIFFERENTIAL [id number] 08:33:00 Test Item Value Reference Range Interpretation [...] (test code = 2+ MICR) HCG SERUM [id number] 07:55:00 Test Item Value Reference Range Interpretation Comments HCG SERUM QUAL (test NEGATIVE NEGATIVE This HC GQL test is NOT code = HCGQL) applicable for MALE patients.Check with nurse about probable order error.If Tumor Marker Test needed, nu rse should order test "HCG TU"(Test #550.96707)---- - COVID 19 Asymptomatic IH [id number] 06:38:00 Test Item Value Reference Range Interpretation Comments COVID 19 Asymptomatic IH AG (test NEGATIVE NEGATIVE code = COVNONPUIAG) CBC W/AUTO [id number] 06:38:00 Test Item Value Reference Range Interpretation [...] COMMENTS: day 1HIV 1 2 COMBO AG/AB [id number] 10:06:00 Test Item Value Reference Range Interpretation Comments HIV 1 2 COMBO AB/AG NON NONREACTIVE NONREACTIVE H IV P24 AG/AB SCREEN REACTIVE ANTIGEN NONREAC TIVE (test code = NONREACTIVE HIV 1&2 [id number]) ANTIBODY NONREA CTIVE THE HIV-1 P24 T EST HELPS DISTINGUI SH ACUTE HIV-1INFECTIONF ROM ESTABLISHED HIV -1 INFECTION WHEN THE SPECIMEN ISPOSI TIVE FOR HIV-1 P24 A NTIGEN. HIV-1 P24 ANTIG EN IS HIGHEST IN THE FIRST FEW WEEKS AFTERINFECTION AG HEPAT B [id number] 09:40:00 Test Item Value Reference Range Interpretation Comments AG HEPAT B SURF (test code NonReactive Index Nonreactive = HBSAG) URINALYSIS [id number] 09:11:00 Test Item Value Reference Range Interpretation [...] HPF NONE A BACU) AG HEPAT B [id number] 12:18:00 Test Item Value Reference Range Interpretation Comments AG HEPAT B SURF (test code NonReactive Index Nonreactive = HBSAG) AB [id number] 12:18:00 Test Item Value Reference Range Interpretation Comments AB TREPONEMA (test code = Negative Index NonReactive TREPAB) COVID 19 Asymptomatic IH [id number] 11:48:00 Test Item Value Reference Range Interpretation Comments COVID 19 Asymptomatic IH AG (test NEGATIVE NEGATIVE code = COVNONPUIAG) CBC W/AUTO [id number] 11:37:00 Test Item Value Reference Range Interpretation [...] REQUIRED (test code NO = MDIFF) LACTIC [id number] 16:15:00 Test Item Value Reference Range Interpretation Comments LACTIC ACID (test code = LACT) 1.2 mmol/L 0.4-1.9 N COMPREHENSIVE METABOLIC [id number] 16:03:00 Test Item Value Reference Range Interpretation [...] 38-126 N TOTAL (test code = ALKP) [id number] 16:03:00 Test Item Value Reference Range Interpretation Comments LIPASE (test code = LIP) 135 U/L 128-270 N URINALYSIS [id number] 16:00:00 Test Item Value Reference Range Interpretation [...] NONE-FEW MUCU) Urine Source? Clean CatchUR HCG [id number] 16:00:00 Test Item Value Reference Range Interpretation Comments UR HCG QUAL (test NEGATIVE This HCGQL test is NOT code = HCGQLU) applicable fo r MALE patients.Check with nurse about probable order error.If Tumor Marker Test needed, nu rse should order test "HCG TU"(Test #550.09082)---- - Urine Source? Clean CatchDRUGS OF ABUSE SCREEN [id number] 16:00:00 Test Item Value Reference Range Interpretation [...] NEGATIVE NEGATIVE PHENCURN) Urine Source? Clean CatchURINALYSIS [id number] 15:57:00 Test Item Value Reference Range Interpretation [...] NONE-FEW MUCU) Urine Source? Clean CatchUR HCG [id number] 15:57:00 Test Item Value Reference Range Interpretation Comments UR HCG QUAL (test NEGATIVE This HCGQL test is NOT code = HCGQLU) applicable fo r MALE patients.Check with nurse about probable order error.If Tumor Marker Test needed, nu rse should order test "HCG TU"(Test #550.45475)---- - Urine Source? Clean CatchDRUGS OF ABUSE SCREEN [id number] 15:57:00 Test Item Value Reference Range Interpretation Comments URN COCAINE (test code = COCAURN) NEGATIVE URN CANNABINOIDS (test code = NEGATIVE CANNABURN) URN AMPHETAMINE (test code = AMPHETURN) NEGATIVE URN BARBITURATE (test code = BARBITURN) NEGATIVE URN BENZODIAZEPINE (test code = NEGATIVE BENZOURN) URN OPIATES (test code = OPIATURN) NEGATIVE URN PHENCYCLIDINE (PCP) (test code = NEGATIVE PHENCURN) Urine Source? Clean CatchURINALYSIS [id number] 15:48:00 Test Item Value Reference Range Interpretation [...] NONE BACU) Urine Source? Clean CatchUR HCG [id number] 15:48:00 Test Item Value Reference Range Interpretation Comments UR HCG QUAL (test NEGATIVE This HCGQL test is NOT code = HCGQLU) applicable fo r MALE patients.Check with nurse about probable order error.If Tumor Marker Test needed, nu rse should order test "HCG TU"(Test #550.42395)---- - Urine Source? Clean CatchDRUGS OF ABUSE SCREEN [id number] 15:48:00 Test Item Value Reference Range Interpretation Comments URN COCAINE (test code = COCAURN) NEGATIVE URN CANNABINOIDS (test code = NEGATIVE CANNABURN) URN AMPHETAMINE (test code = AMPHETURN) NEGATIVE URN BARBITURATE (test code = BARBITURN) NEGATIVE URN BENZODIAZEPINE (test code = NEGATIVE BENZOURN) URN OPIATES (test code = OPIATURN) NEGATIVE URN PHENCYCLIDINE (PCP) (test code = NEGATIVE PHENCURN) Urine Source? Clean CatchURINALYSIS [id number] 15:47:00 Test Item Value Reference Range Interpretation [...] NONE BACU) Urine Source? Clean CatchUR HCG [id number] 15:47:00 Test Item Value Reference Range Interpretation Comments UR HCG QUAL (test code = HCGQLU) Urine Source? Clean CatchDRUGS OF ABUSE SCREEN [id number] 15:47:00 Test Item Value Reference Range Interpretation Comments URN COCAINE (test code = COCAURN) NEGATIVE URN CANNABINOIDS (test code = NEGATIVE CANNABURN) URN AMPHETAMINE (test code = AMPHETURN) NEGATIVE URN BARBITURATE (test code = BARBITURN) NEGATIVE URN BENZODIAZEPINE (test code = NEGATIVE BENZOURN) URN OPIATES (test code = OPIATURN) NEGATIVE URN PHENCYCLIDINE (PCP) (test code = NEGATIVE PHENCURN) Urine Source? Clean CatchCBC W/AUTO [id number] 15:43:00 Test Item Value Reference Range Interpretation [...] DIFF REQUIRED (test code NO = MDIFF) Notes Date/Time Note Provider Source 2021-10-08 12:11:00-00:00 [id number] [facility] PATIENT NAME: TIARA RUEDA ADMIT DATE: 10/08 ACCOUNT NO: [id number] ROOM NO: AGE: 41 REPORT TYPE: OPERATIVE REPORT SEX: F DATE OF : [birth year] ADMITTING PHYSICIAN: ATTENDING PHYSICIAN:Shekhar Crowell MD OPERATION DATE: 10/08/2021 PREOPERATIVE DIAGNOSES: Grand multiparity with u ndesired fertility. POSTOPERATIVE DIAGNOSES: Grand multiparity with undesired fertility. PROCEDURE: Laparoscopic Filshie clip sterilizati on. SURGEON: Shekhar Crowell MD CONFIGURATION MANAGEMENT SPECIALIST: ____ CARDIAC CATHETERIZATION TECHNOLOGIST ANESTHESIOLOGIST: Tony Jernigan MD ANESTHESIA: General. FINDINGS: Uterus, tubes, ovaries grossly normal. DESCRIPTION OF PROCEDURE: The patient under gene ral endotracheal anesthesia, placed in lithotomy position, scrubbed and drape d as usual. Bladder emptied. Exam under anesthesia along with normal findings . A CHRISTINA uterine manipulator placed. Pneumoperitoneum cre ated with a Veress needle through an infraumbilical site to an intraabdominal pressure of 15 mmHg of CO2 after which a 5-mm bladeless trocar introduced infraumbilic ally with direct visualization without difficulty. Abdomen and pelvis inspected with normal findings. Suprapubic 8-mm bladeless trocar introduced with direct visualization. Filshie clip applicator used to apply a single proximal isthmic Filshie clip on both fallopian tubes. Complete tubal occlusion confirmed. Pictures janel en. Filshie clip applicator removed. Secondary 8-mm bladeless trocar sleeve removed, no bleeding appreciated. A 5 mL of 0.25% Marcaine used on th e suprapubic trocar site. Facial defect approximated w ith Vicryl 2-0, skin closed in subcuticular fashion with Vicryl 3-0. Laparoscope removed. Pneumoperi toneum evacuated. A 5-mm trocar sleeve removed. 5 mL of 0.25% Marcaine used on the infraumbilical trocar site. Facial defect approximated with ch romic 2-0, skin closed in subcuticular fashion with Vicryl 3-0. CHRISTINA uterine manipulato r removed. ESTIMATED BLOOD LOSS: 10 mL. DISPOSITION: The patient grant erated well the procedure and transferred in stable condition to the postanesthesia care unit. Dictated By: Shekhar Crowell MD PATIENT NAME: TIARA RUEDA [id number] WT: OP:PRITESH/BON.02/NTS Conf#: [id number]/DID#: [id number] Authenticated by Shekhar Crowell MD On 10/08 08:23:39 PM at 0823 PATIENT NAME: TIARA RUEDA [id number] 12:04:00-00:00 [facility] ([facility]) Brief Op Sina REPORT#:[id number] REPORT STATUS: Signed DATE:10/08/21 TIME: 1204 PATIENT: TIARA RUEDA UNIT #: [id number] ROOM/BED: : 79 AGE: 41 SEX: F ATTEND: Dashawn Crowell MD ADM AUTHOR: Shekhar Crowell MD * ALL edits or amendments must be made on the el ectronic/computer document * Op/Inv Proc Note - Brief Pre-procedure diagnosis: Grand multiparity/ undesired fertility Post-procedure diagnosis: same as pre procedure dx Procedures performed: Laparoscopic Filshie clip sterilization Primary Surgeon: Shekhar Crowell MD Vice President Payer(s): Xiao DRISCOLL Anesthesiologist: Sheron HARRELL Anesthesia: general anesthesia Findings: uterus , tubes and ovaries grossly normal Complications: none Estimated blood loss in ml's: 10 cc Specimens removed/altered: none Drain(s): None Tube(s): none Implant(s): Filshie clips Fluids: LR Approach: laparoscopic Wound class: clean Disposition: PACU Dictation number: [id number] Electronically Signed by Shekhar Crowell MD o n 10/08/21 at 1211 RPT #:[id number] END OF REPORT 2021-10-08 10:24:00-00:00 [facility] ([facility]) Post Anesthesia Evaluation REPORT#:[id number] REPORT STATUS: Signed DATE:10/08/21 TIME: 1024 PATIENT: TIARA RUEDA UNIT #: [id number] ROOM/BED: : 79 AGE: 41 SEX: F ATTEND: Dashawn Crowell MD ADM AUTHOR: Briana Jernigan MD * ALL edits or amendments must be made on the el [employer]/computer document * Post Anesthesia Evaluation Anes. changes from pre-op eval ORM Surgeries: Surgery Date and Time: 10/08/2021 0900 Primary Procedure: LAPAROSCOPIC BILATERAL TUBAL LIGATION Anesthetic: GETA Surgery: Same as above. Date: 10/08/21 Level of consciousness: sadi ent awake, able to answer questions, participate in this eval. Neurological assessment: Neuromuscular block: resolved as expected Musculoskeletal: moves all extremities, sensati on intact Vital signs: Last Documented: Result Date Time Pulse Ox 98 10/08 712 B/P 114/77 10/08 712 O2 Delivery Room air 10/08 712 Temp 36.3 10/08 712 Pulse 71 10/08 712 Resp 19 10/08 712 Cardiovascular: CV system stable, vital signs st able Respiratory/Airway: respiratory system stable, m aintains without support Pain: adequately controlled Hydration: adequate Temp status: greater than 96.8F, normothermic Presence of N/V: no Anesthesia complications: no Other changes requiring f/u: none Conclusions: no apparent anes. issues Electronically Signed by Briana Jernigan MD o n 10/08/21 at 1025 RPT #:[id number] END OF REPORT 2021-08-25 12:31:00-00:00 [facility] ([facility]) Clinical Note REPORT#:[id number] REPORT STATUS: Signed DATE:08/25/21 TIME: 1231 PATIENT: TIARA RUEDA UNIT #: [id number] ROOM/BED: : 79 AGE: 41 SEX: F ATTEND: Dashawn Crowell MD ADM AUTHOR: Shekhar Crowell MD * ALL edits or amendments must be made on the el ectronic/computer document * Clinical Note Note: Discharge summary dictated, N [id number] Electronically Signed by Shekhar Crowell MD o n 08/25/21 at 1231 RPT #:[id number] END OF REPORT 2021-08-25 12:30:00-00:00 [facility] ([facility]) Clinical Note REPORT#:[id number] REPORT STATUS: Signed DATE:08/25/21 TIME: 1230 PATIENT: TIARA RUEDA UNIT #: [id number] ROOM/BED: : 79 AGE: 41 SEX: F ATTEND: Dashawn Crowell MD ADM AUTHOR: Shekhar Crowell MD * ALL edits or amendments must be made on the el ectronic/computer document * Clinical Note Note: Delivery note dictated, N [id number] Electronically Signed by Shekhar Crowell MD o n 08/25/21 at 1231 RPT #:[id number] END OF REPORT 2021-08-25 12:29:00-00:00 [id number] [facility] PATIENT NAME: TIARA RUEDA ADMIT DATE: 08/24 ACCOUNT NO: [id number] ROOM NO: V AGE: 41 REPORT TYPE: DISCHARGE SUMMARY REPORT SEX: F DATE OF : [birth year] ADMITTING PHYSICIAN:Shekhar Crowell MD ATTENDING PHYSICIAN:Shekhar Crowell MD ADMISSION DATE: 08/24/2021 DISCHARGE DATE: 08/25/2021 SUMMARY: Ms. Rueda is a 41-year-old 12, p judd 9, 2 female without history of systemic illnesses, NO KNOWN DRUG ALLERGIES, no toxic habits, intrauterine at 39 weeks 2 days, statu s post obstetrical vaginal delivery and second-degree perineal laceration r epair, day #1 who remains in stable condition. She is afeb rile, normotensive, active, tolerating regular diet. Bowel sounds present, well contrac mariana uterus, normal lochia. H and H 7.9 and 25.8, and is asymptom atic. The patient will be placed on iron supplements. Continue routine pos tpartum care. She will be discharged once the baby get s cleared for discharge, on a regular diet, limited physical activity, vitamin and iron supplements, Tylenol No. 3 one to two tablets p.o. q. 6 hours as n eeded for pain and follow up in 4 weeks for routine visit. Education given in regards to diet, care, care, , anemia, family planning, co ntraceptive options, warning signs and symptoms, and general health [facility]. Dictated By: Shekhar Crowell MD WT: DS:PRITESH/BON.02/NTS Conf#: [id number]/DID#: [id number] Authenticated by Shekhar Crowell MD On 08/31 03:33:13 PM at 0333 PATIENT NAME: TIARA RUEDA [id number] 1275-01-19 12:26:00-00:00 [id number] [facility] PATIENT NAME: TIARA RUEDA ADMIT DATE: 08/07 03/28 ACCOUNT NO: [id number] ROOM NO: AGE: 41 REPORT TYPE: LABOR AND DELIVERY NOTE SEX: F DATE OF : [birth year] ADMITTING PHYSICIAN:Shekhar Crowell MD ATTENDING PHYSICIAN:Shekhar Crowell MD DELIVERY DATE: 08/24/2021 HEALTH CARE MARKETING MANAGER: Shekhar Crowell MD SUMMARY: Ms. Rueda is a 41-year-old 12, p judd 9, 2 female without history of systemic illnesses, NO KNOWN DRUG ALLERGIES, no toxic habits, intrauterine at 39 weeks 2 days, care without complications, admitted for elective induction, received oxytoc in induction, subsequent epidural anesthesia, presented adequate progress ion of labor. Placed in lithotomy position, scrubbed and draped as usual followed by assisted vaginal delivery of a single living female in vertex occ iput anterior presentation, weight 7 pounds 13 ounces, scores 8 and 9. Clear amniotic fluid. Three-vessel cord. Placenta delivered with selene tance, complete, grossly normal. Uterus contracted well. Second-degree pe rineal laceration repaired under epidural anesthesia with Vicryl 3-0. Hemos tasis achieved. Quantitative blood loss 68 mL. The patient tolerated well her labor and delivery and was left in stable condition in the labor and delive ry unit. Dictated By: Shekhar Crowell MD WT: LD:PRITESH/JACKY/NTS Conf#: [id number]/DID#: [id number] Authenticated by Shekhar Crowell MD On 08/31 03:33:12 PM at 0333 PATIENT NAME: TIARA RUEDA [id number] 12:41:00-00:00 [id number] [facility] PATIENT NAME: TIARA RUEDA ADMIT DATE: 08/24 ACCOUNT NO: [id number] ROOM NO: AGE: 41 REPORT TYPE: HISTORY AND PHYSICAL SEX: F DATE OF : [birth year] ADMITTING PHYSICIAN:Shekhar Crowell MD ATTENDING PHYSICIAN:Shekhar Crowell MD ADMISSION DATE: 08/24/2021 CHIEF COMPLAINT: Elective induction of labor. HISTORY OF PRESENT ILLNESS: Ms. Rueda is a 41-yea r-old 12, para 9, 2 female without history of systemic il lnesses, NO KNOWN DRUG ALLERGIES, no toxic habits, estimated date of delivery 08/29/2021, intrauterine at 39 weeks and 2 days, care without complications, who is being admitted for elective induction of labor. She refers occasional uterine contractions since approximately 1 week prior to admission. Denies fever, headaches, visual disturbances, shortness of claudio ath, chest pain, abdominal trauma, vaginal bleeding nor discharge. PAST MEDICAL HISTORY, FAMILY HISTORY AND SOCIAL HISTORY: Please refer to the record. REVIEW OF SYSTEMS: See history of present illnes s, otherwise noncontributory. PHYSICAL EXAMINATION: VITAL SIGNS: Stable. GENERAL: The patient is alert, oriented x3, does not appear to be acutely nor chronically ill. HEAD AND NECK: Pupils equally reactive to light. LUNGS: Clear to auscultation. HEART: Regular rhythm. ABDOMEN: Gravid. Fundal height 37 cm. hear t tones in the 140s. No uterine contractions palpable. No fundal tendern ess. PELVIC: Cervix is 2 cm dilated, 50% effaced, benedicto nela presentation, intact membranes, at a -2 station. EXTREMITIES: Trace edema. Deep tendon reflexes + 2. IMPRESSION: A 41-year-old gr avida 12, para 9, 2 female without history of systemic illnesses, NO KNOWN DRUG ALLERGIES, no toxic habits, intrauterine of 39 weeks 2 days , care without complications, presents with 1-week history of occasional contractions, requesting induction of labor, found with favorable cervix, cepha lic presentation, estimated weight 7 pounds 9 ounces, adequate clinical pe lvimetry, favorable cervix, GBS negative screen, who is being admitted for oxytocin induction and tri al of labor. Dictated By: Shekhar Crowell MD WT: HP:PRITESH/ PATIENT NAME: TIARA RUEDA [id number] Conf#: [id number]/DID#: [id number] Authenticated by Shekhar Crowell MD On 08/31 03:33:11 PM at 0333 PATIENT NAME: TIARA RUEDA [id number] 2031-01-17 12:39:00-00:00 [facility] ([facility]) Clinical Note REPORT#:[id number] REPORT STATUS: Signed DATE:08/23/21 TIME: 1239 PATIENT: TIARA RUEDA UNIT #: [id number] ROOM/BED: : 79 AGE: 41 SEX: F ATTEND: Dashawn Crowell MD ADM AUTHOR: Shekhar Crowell MD * ALL edits or amendments must be made on the el ectronic/computer document * Clinical Note Note: Radha car N [id number] Electronically Signed by Shekhar Crowell MD o n 08/23/21 at 1241 RPT #:[id number] END OF REPORT 2018-12-21 15:15:00-00:00 [facility] ([facility]) EMERGENCY PROVIDER REPORT REPORT#:[id number] REPORT STATUS: Signed DATE:12/21/18 TIME: 1514 PATIENT: TIARA RUEDA UNIT #: [id number] ROOM/BED: AGE: 38 SEX: F PCP PHYS: No Primary or Family Ph ysician SERVICE AUTHOR: Rahul Enriquez MD * ALL edits or amendments must be made on the el ectronic/computer document * HPI-Abd Pain F Under 40 General Initial Greet Date/Time 12/21/18 1511 Presentation Chief Complaint Abdominal pain Free Text HPI Notes Free Text HPI Notes 38 y/o F with abd pain, nausea, started 2 days a go, also having back pain, thinks it may be her gallbladder, +tobacco and E Neelam, denies illegal drug use Risk-Abd Pain F Under 40 )( Ectopic Risk factors reviewed Coronary Artery Disease Risk factors reviewed Thoracic Aortic Dissection Risk factors reviewed Review of Systems ROS Statements All systems rev neg except as marked. Past Medical History - Adult Stated Complaint ABD PAIN Allergies Coded Allergies: No Known Allergies (06/13/18) Home Medications Discontinued Scripts ACETAMINOPHEN/CODEINE (TYLENOL WITH CODE INE #3 300/30 MG) 2 TAB PO Q6H PRN PRN pain ACETAMINOPHEN/CODEINE (TYLENOL WITH CODEINE #3 300/30 MG) 2 TAB PO Q6H PRN PRN pain #40 TABS Prov: 06/15/18 DC: 12/21/18 1520 Therapy completed Reported Medications No Known Home Medications Discontinued Reported Medications IRON/FA/B12/C/DOCUSATE SODIUM (FERRALET 90) 1 TA B PO DAILY DOCUSATE SODIUM (COLACE) 100 MG PO DAILY PNV/FE FUM/FA ( MULTIVITAMIN) 1 TAB PO D AILY Review of Nursing Notes Rev avail, and agree Additional Medical History skin cancer Alcohol Use Denies EtOH use Drug Use Denies recreational drugs Physical Exam Vital Signs Vital Signs First Documented: Result Date Time Pulse Ox 97 12/21 1511 B/P 129/80 12/21 1511 B/P Mean 96 12/21 1511 Temp 36.8 12/21 1511 Pulse 113 12/21 1511 Resp 16 12/21 1511 Last Documented: Result Date Time Pulse Ox 97 12/21 1511 B/P 129/80 12/21 1511 B/P Mean 96 12/21 1511 Temp 36.8 12/21 1511 Pulse 113 12/21 1511 Resp 16 12/21 1511 Review of Vital Signs Reviewed Focused PE General/Const General/Const Awake, Alert, No acute distress Resp/Chest Respiratory/Chest Atraumatic, Breath sounds NL, Breath sounds = bilat Cardiovascular Cardiovascular Heart rate NL, Regular rhythm, H eart sounds NL Abdomen/GI Abdomen/GI Atraumatic, Soft, Non-tender MS Back Back Atraumatic, Inspection NL, Full range of m otion Genitourinary General Exam deferred Rectum Rectum/Perineum Exam deferred Neurologic Neurologic Oriented X3, Speech NL, No motor def icits Interpretation Diagnostics Lab Results Interpretation Results Laboratory Tests 12/21/18 1530: [Embedded Image Not Available] Laboratory Tests: 12/21 12/21 1553 1530 Chemistry Sodium (135 - 148 mmol/L) 139 Potassium (3.5 - 5.1 mmol/L) 3.8 Chloride (101 - 109 mmol/L) 102 Carbon Dioxide (21 - 32 mmol/L) 27.0 Anion Gap (10 - 20 mmol/L) 14 BUN (3 - 21 mg/dL) 9 Creatinine (0.55 - 1.3 mg/dL) 0.79 BUN/Creatinine Ratio (10 - 20) 11.4 Glucose (74 - 106 mg/dL) 92 Lactic Acid (0.4 - 1.9 mmol/L) 1.2 Calcium (8.4 - 10.2 mg/dL) 8.3 L Total Bilirubin (0.0 - 1.0 mg/dL) 0.60 AST (6 - 32 U/L) 11 ALT (12 - 78 U/L) 16 Total Alk Phosphatase (38 - 126 U/L) 60 Total Protein (6.5 - 8.4 g/dL) 7.6 Albumin (3.4 - 4.8 g/dL) 3.5 Globulin (1 - 10 G/DL) 4.1 Albumin/Globulin Ratio (0.75 - 1.50 RATIO) 0.9 Lipase (128 - 270 U/L) 135 Hematology WBC (4.5 - 12.5 K/mm3) 11.8 RBC (3.7 - 5.2 mill/mm3) 4.64 Hgb (11.5 - 15.5 gram/dL) 11.2 L Hct (36.0 - 46.0 %) 35.2 L MCV (80 - 98 fL) 75.9 L MCH (27.0 - 33.0 picogram) 24.1 L MCHC (33.0 - 36.0 gram/dL) 31.8 L RDW (11.6 - 16.2 %) 15.0 RDW Std Deviation (37.0 - 51.0 fL) 41.0 Plt Count (150 - 450 K/mm3) 272 MPV (6.7 - 11.0 fL) 10.7 Neut % (Auto) (39.0 - 69.0 %) 84.5 H Lymph % (Auto) (25.0 - 55.0 %) 10.0 L [place] % (Auto) (0.0 - 10.0 %) 4.6 Eos % (Auto) (0.0 - 5.0 %) 0.3 Baso % (Auto) (0.0 - 1.0 %) 0.3 Neut # (Auto) (1.8 - 7.7 K/mm3) 9.92 H Lymph # (Auto) (1.0 - 5.0 K/mm3) 1.17 [place] # (Auto) (0 - 0.8 K/mm3) 0.54 Eos # (Auto) (0.0 - 0.5 K/mm3) 0.04 Baso # (Auto) (0.0 - 0.2 K/mm3) 0.04 Add Manual Diff NO Toxicology Urine Opiates Screen (NEGATIVE) NEGATIVE Urine Barbiturates (NEGATIVE) NEGATIVE Ur Phencyclidine Scrn (NEGATIVE) NEGATIVE Ur Amphetamines Screen (NEGATIVE) NEGATIVE U Benzodiazepines Scrn (NEGATIVE) NEGATIVE Urine Cocaine Screen (NEGATIVE) NEGATIVE Urine Cannabinoids (NEGATIVE) NEGATIVE Urines Urine Color (YELLOW) LIGHT YELLOW Urine Appearance (CLEAR) Cloudy H Urine pH (5.0 - 8.0) 9.0 H Ur Specific [place] (1.001 - 1.035) 1.015 Urine Protein (Neg - 15 mg/dL) 30 (1+) H Urine Glucose (UA) (NEGATIVE mg/dL) norm Urine Ketones (NEGATIVE mg/dL) neg Urine Blood (NEGATIVE Lc/uL) 10 (Trace) H Urine Nitrite (NEGATIVE) POSITIVE Urine Bilirubin (NEGATIVE mg/dL) NEGATIVE Urine Urobilinogen (0.0 - 0.2 mg/dL) 1 H Ur Leukocyte Esterase (NEGATIVE uL) 500 Neal/uL (3+) H Urine RBC (0 - 5 per HPF) 0-3 Urine WBC (0 - 5 per HPF) 40-50 H Ur Epithelial Cells (Few per HPF) Few (2-5/hpf) Urine Bacteria (NONE per HPF) LOADED H Urine Mucus (NONE - FEW per LPF) FEW Urine HCG, Qual NEGATIVE Microbiology: Date/Time Procedure - Status Source Growth 12/21 1529 Urine Culture - RECD URINE Re-Evaluation [facility] )( Re-Evaluation/Progress #1 )( Re-Eval Status Unchanged Patient Discharge Departure Vital Signs/Condition Vital Signs First Documented: Result Date Time Pulse Ox 97 12/21 151 B/P 129/80 12/21 1511 B/P Mean 96 12/21 151 Temp 36.8 12/21 151 Pulse 113 12/21 1511 Resp 16 12/21 1510 Last Documented: Result Date Time Pulse Ox 97 12/21 1510 B/P 129/80 12/21 1510 B/P Mean 96 12/21 1510 Temp 36.8 12/21 1510 Pulse 113 12/21 1510 Resp 16 12/21 1510 All vital signs available at the time of this en try have been reviewed. Clinical Impression Clinical Impression Primary Impression: Urinary tract infection Time of Impression 1619 Disposition Decision Discharge )( Discharged to Home Yes )( Time 1619 )( Date 12/21/18 Discharge/Care Plan Counseled Regarding Diagnosis, Lab resul ts, Prescriptions, Need for follow-up, When to return to ED Prescriptions keflex Prescriptions Reviewed Risks, Benefits, Alternat emily treatment Discharge Note I have spoken with the patie nt and/or caregivers. I have explained the patient's condition, diagnoses and roula atment plan based on the information available to me at this time. I have answered the patient's and/ or caregiver's questions and addressed any concerns. The patient and/or careg matthew have as good an understanding of the patient 's diagnosis, condition and treatment plan as can be expected at this point. The vital signs have bee n stable. The patient's condition is stable and appr opriate for discharge from the emergency department. The patient will pursue further outpatient evalu ation with the primary care physician or other designated or consulting phys ician as outlined in the discharge instructions. The patient and/or caregivers are agreeable to this plan of care and follow-up instructions have been exp lained in detail. The patient and/or caregivers have received these instructio ns in written format and have expressed an understanding of the discharge inst ructions. The patient and/or caregivers are aware that any significant change in condition or worsening of symptoms should prompt an immediate return to [facility] or the closest emergency department or a call to 911. Electronically Signed by Rahul Enriquez MD on 0 12/21/18 at 1620 RPT #:[id number] END OF REPORT
[2023-01-18] MEDS ORDERED: MORPHINE 2 MG/ML SYR ONE (22:43)
[2023-01-18] MEDS ORDERED: NA CHLORIDE 0.9% 1,000 ML ONE (22:43)
[2023-01-18] MEDS ORDERED: ONDANSETRON 4 MG/2 ML VIAL ONE (22:43)
[2023-01-18] MEDS ORDERED: FAMOTIDINE 20 MG/2 ML VIAL IV ONE (22:43)
[2023-01-18 22:52] LABS: Absolute Lymphocytes (CBC) 1.4 K/uL (0.7-4.9); Hematocrit 27.5 % (36.0-45.0); Lymphocytes % 14.7 % (15.3-44.8); MCV 65.9 fL (80-100); RBC Red Blood Cell Count 4.17 M/uL (3.86-4.86)
[2023-01-18 23:01] LABS: Specific Gravity 1.023 (1.005-1.030); Urine Bacteria 20-50 /HPF (<20); Urine Bilirubin NEGATIVE (Negative); Urine Blood Negative (Negative); Urine Clarity Extremely Turbid (Clear); Urine Color Light-Yellow (Yellow); Urine Glucose NEGATIVE (Negative); Urine Mucus Slight /HPF (None Seen); Urine Protein TRACE (Negative); Urine RBC <5 /HPF (None Seen); Urine Urobilinogen Normal (Normal)
[2023-01-18 23:06] LABS: Albumin 3.1 g/dL (3.4-5.0); Bilirubin Total 0.2 mg/dL (0.2-1.0); Protein, Total 8.2 g/dL (6.4-8.2)
[2023-01-19 00:29] LABS: Blood Morphology Comment NOTED (NOT SEEN); Hypochromasia 1+; Platelet Estimate ADEQ; White Blood Cell Scan OK (OK)
--- NOTE | 2023-01-19 01:21 | EDPHYS ---
Physician Documentation [facility] [place] Name: Coby Rueda Age: 42 yrs Sex: Female : 1980 Arrival Date: 01/18/2023 Time: 21:34 Bed 15 Private MD: ED Physician Quentin Mauro HPI: 01/18 22:15 This 42 yrs old Female presents to ER via Ambulatory with complaints of cp Abdominal Pain, Breathing Difficulty. 22:15 The patient presents with abdominal pain in the epigastric area, in the right upper cp quadrant. Onset: The symptoms/episode began/occurred this morning. The symptoms radiate to back. Associated signs and symptoms: Pertinent positives: nausea and vomiting, chest pain, Pertinent negatives: diarrhea, vomiting blood. The symptoms are described as constant. 22:15 The patient has experienced similar episodes in the past, a few times, years ago, cp patient reports she was diagnosed with stones in gallbladder. 22:15 Severity of pain: in the emergency department the pain is unchanged despite home cp interventions. Historical: - Allergies: 21:55 No Known Allergies; mb9 - Home Meds: 21:55 None [Active]; mb9 - PMHx: 21:55 None; mb9 - PSHx: 21:55 None; mb9 - Immunization history:: Adult Immunizations up to date. - Social history:: Smoking status: Patient reports the use of cigarette tobacco products, denies chronic smoking, but will smoke occasionally. ROS: 22:20 Constitutional: Negative for body aches, chills, fever. cp 22:20 Eyes: Negative for injury, pain, redness, and discharge. cp 22:20 ENT: Negative for drainage from ear(s), ear pain, sore throat, difficulty swallowing, difficulty handling secretions. 22:20 Cardiovascular: Negative for chest pain. 22:20 Respiratory: Negative for cough, shortness of breath, wheezing. 22:20 Abdomen/GI: Positive for abdominal pain, nausea and vomiting, of the epigastric area, Negative for diarrhea, constipation. 22:20 Back: Positive for radiated pain. 22:20 : Negative for urinary symptoms, flank pain, vaginal bleeding. 22:20 Neuro: Negative for altered mental status, dizziness, headache, numbness, syncope, weakness. 22:20 All other systems are negative. Exam: 22:25 Constitutional: The patient appears alert, awake, non-diaphoretic, non-toxic, well cp developed, well nourished, in obvious pain, uncomfortable. 22:25 Head/Face: Normocephalic, atraumatic. cp 22:25 Eyes: Periorbital structures: appear normal, Conjunctiva: normal, no exudate, no injection, Sclera: no appreciated abnormality, Lids and lashes: appear normal, bilaterally. 22:25 ENT: External ear(s): are unremarkable, Nose: is normal, Mouth: Lips: moist, Oral mucosa: pink and intact, moist, Posterior pharynx: is normal, airway is patent, no erythema, no exudate. 22:25 Neck: ROM/movement: is normal, is supple, without pain, no range of motions limitations. 22:25 Chest/axilla: Inspection: normal. 22:25 Cardiovascular: Rate: normal, Rhythm: regular, Edema: is not appreciated, JVD: is not appreciated. 22:25 Respiratory: the patient does not display signs of respiratory distress, Respirations: normal, no use of accessory muscles, no retractions, labored breathing, is not present, Breath sounds: are clear throughout, no decreased breath sounds, no stridor, no wheezing. 22:25 Abdomen/GI: Inspection: abdomen appears normal, Bowel sounds: active, all quadrants, Palpation: soft, in all quadrants, severe abdominal tenderness, in the epigastric area and right upper quadrant, rebound tenderness, is not appreciated, voluntary guarding, is elicited in the epigastric area and right upper quadrant. 22:25 Back: pain, that is moderate, of the mid back area, ROM is normal. 22:25 Skin: 22:25 Neuro: Orientation: to person, place \T\ time. Mentation: is normal, Cerebellar function: is grossly normal, Motor: moves all fours, strength is normal, Sensation: is normal. Vital Signs: 21:52 BP 119 / 83; Pulse 97; Resp 18; Temp 98.4(O); Pulse Ox 99% on R/A; Weight 83.91 kg; mb9 Height 5 ft. 4 in. ; Pain 8/10; 0615 00:24 BP 108 / 77; Pulse 76; Resp 16; Temp 98; Pulse Ox 100% ; Pain 0/10; rv 01:24 BP 109 / 73; Pulse 65; Resp 15; Temp 98; Pulse Ox 100% ; Pain 0/10; rv 01/18 21:52 Body Mass Index 31.75 (83.91 kg, 162.56 cm) 9 01/18 21:52 Pain Scale: Adult 9 01/19 00:24 Pain Scale: Adult rv 01:24 Pain Scale: Adult rv Angela Coma Score: 01:24 Eye Response: spontaneous(4). Motor Response: obeys commands(6). Verbal Response: rv oriented(5). Total: 15. MDM: 01/18 21:51 Patient medically screened. cp 23:00 Differential diagnosis: cholecystitis, Cholelithiasis, pancreatitis, Peptic Ulcer cp Disease, Perf. Duodenal Ulcer, Perf. Gastric Ulcer, Pyelonephritis, Ureterolithiasis, urinary tract infection. 01/18 22:07 Order name: CBC with Diff; Complete Time: 01:13 cp 01/18 23:09 Interpretation: Normal except: HGB 8.7; HCT 27.5; MCV 65.9; MCH 20.8; MCHC 31.6; RDW cp 17.5; KARRIE% 79.6; LYM% 14.7. 01/18 22:07 Order name: CMP; Complete Time: 23:09 01/18 23:10 Interpretation: Normal except: GLUC 113; CRE 0.51; AST 7; ALB 3.1; GLOB 5.1; A/G 0.6. cp 01/18 22:07 Order name: Lipase; Complete Time: 23:09 cp 01/18 22:07 Order name: Test, Urine; Complete Time: 23:09 01/18 22:07 Order name: Urinalysis w/ reflexes; Complete Time: 23:09 01/18 23:00 Order name: CBC Smear Scan; Complete Time: 01:13 EDMS 01/18 23:04 Order name: Urine Culture EDMA 01/18 22:07 Order name: US Abdomen Limited 01/18 22:08 Order name: XRAY Chest (1 view) 01/18 22:07 Order name: IV Saline Lock; Complete Time: 22:38 cp 01/18 22:07 Order name: Labs collected and sent; Complete Time: 22:38 01/19 01:12 Order name: PO challenge; Complete Time: 01:19 cp Administered Medications: 22:50 Drug: NS 0.9% IV 1000 ml Route: IV; Rate: 1 bolus; Site: right antecubital; rv 01/19 00:27 Follow up: IV Status: Completed infusion; IV Intake: 1000ml rv 01/18 22:50 Drug: Famotidine IVP 20 mg Route: IVP; Site: right antecubital; rv 01/19 00:27 Follow up: Response: No adverse reaction rv 01/18 22:51 Drug: Ondansetron IVP 4 mg Route: IVP; Site: right antecubital; rv 01/19 00:27 Follow up: Response: No adverse reaction rv 01/18 22:51 Drug: morphine IVP or IV 2 mg Route: IVP; Infused Over: 4 mins; Site: right antecubital;rv 01/19 00:26 Follow up: Response: No adverse reaction; Marked relief of symptoms rv 01:24 Drug: Rocephin - Rocephin (cefTRIAXone) IVPB 1 grams Route: IVPB; Infused Over: 30 rv mins; Site: right antecubital; 01:29 Follow up: Response: Medication administered at discharge.; IV Status: Completed rv infusion Disposition: 01:39 Co-signature as Attending Physician, Quentin Mauro MD I reviewed the patient's care rt provided by the Advanced Practice Provider and agree with the diagnosis and treatment plan. Disposition Summary: 01/19/23 01:20 Discharge Ordered Location: Home cp Problem: new cp Symptoms: have improved cp Condition: Stable cp Diagnosis - Other cholelithiasis without obstruction cp - UTI/ Urinary tract infection, site not specified cp - Anemia, unspecified cp Followup: cp - With: Jorge Ramos MD - When: 1 - 2 days - Reason: Recheck today's complaints Discharge Instructions: - Discharge Summary Sheet cp - Anemia cp - Urinary Tract Infection, Adult cp - Cholelithiasis cp Forms: - Medication Reconciliation Form cp - Thank You Letter cp - Antibiotic Education cp - Prescription Opioid Use cp Prescriptions: - Zofran 4 mg Oral Tablet - take 1 tablet by ORAL route every 12 hours As needed; 20 tablet; Refills: 0, cp Product Selection Permitted - Cipro 500 mg Oral Tablet - take 1 tablet by ORAL route every 12 hours for 7 days; 14 tablet; Refills: 0, cp Product Selection Permitted - dicyclomine 20 mg Oral Tablet - take 1 tablet by ORAL route 4 times per day; 20 tablet; Refills: 0, Product cp Selection Permitted Signatures: Dispatcher [employer] Abdi Cuevas PA PA cp Vicente, Ronaldo, RN RN rv Ingris Simon RN RN mb9 Quentin Mauro MD MD rt
--- NOTE | 2023-01-19 01:21 | ER ---
Nurse's Notes [facility] [place] Name: Coby Rueda Age: 42 yrs Sex: Female : 1980 Arrival Date: 01/18/2023 Time: 21:34 Bed 15 Private MD: Diagnosis: Other cholelithiasis without obstruction;UTI/ Urinary tract infection, site not specified;Anemia, unspecified Presentation: 01/18 21:52 Chief complaint: Patient states: "I woke up this morning with severe upper abdominal mb9 pain that is throbbing and radiates to my back. I've been nauseous and vomiting. Last time I felt like this 13 years ago, it was my gallbladder.". Coronavirus screen: Vaccine status: Patient reports being unvaccinated. Ebola Screen: No symptoms or risks identified at this time. Initial Sepsis Screen: Does the patient meet any 2 criteria? No. Patient's initial sepsis screen is negative. Does the patient have a suspected source of infection? No. Patient's initial sepsis screen is negative. Risk Assessment: Do you want to hurt yourself or someone else? Patient reports no desire to harm self or others. Onset of symptoms was January 18, 2023. 21:52 Method Of Arrival: Ambulatory mb9 21:52 Acuity: KIERRA 3 mb9 Triage Assessment: 21:55 General: Appears uncomfortable, Behavior is appropriate for age. Pain: Complains of mb9 pain in abdomen Pain radiates to back Quality of pain is described as throbbing, Pain began suddenly. Neuro: [place] Agitation-Sedation Scale (RASS): 0 - Alert and Calm Level of Consciousness is awake, alert, obeys commands, Oriented to person, place, time, situation, Appropriate for age. Respiratory: Airway is patent. GI: Reports nausea, vomiting. Derm: Skin is pink, warm \\T\\ dry. Musculoskeletal: Range of motion: intact in all extremities. Historical: - Allergies: 21:55 No Known Allergies; mb9 - Home Meds: 21:55 None [Active]; mb9 - PMHx: 21:55 None; mb9 - PSHx: 21:55 None; mb9 - Immunization history:: Adult Immunizations up to date. - Social history:: Smoking status: Patient reports the use of cigarette tobacco products, denies chronic smoking, but will smoke occasionally. Screenin/15 00:27 [facility] ED Fall Risk Assessment (Adult) History of falling in the last 3 months, rv including since admission No falls in past 3 months (0 pts) Confusion or Disorientation No (0 pts) Intoxicated or Sedated No (0 pts) Impaired Gait No (0 pts) Mobility Assist Device Used No (0 pt) Altered Elimination No (0 pt) Score/Fall Risk Level 0 - 2 = Low Risk Oriented to surroundings, Maintained a safe environment, Educated pt \\T\\ family on fall prevention, incl call for assistance when getting out of bed, Assessed \\T\\ reinforced patient's understanding of fall precautions, Provided non-skid footwear, Hourly rounding (assess needs \\T\\ fall precautionary measures) done, Used ambulatory aids as needed (educated on \\T\\ assisted with), Used gait belt as appropriate. Abuse screen: Denies threats or abuse. Denies injuries from another. Nutritional screening: No deficits noted. Tuberculosis screening: No symptoms or risk factors identified. Assessment: 01/18 23:00 General: Appears in no apparent distress. Behavior is calm, cooperative. rv 23:00 Pain: Complains of pain in abdomen. Neuro: Level of Consciousness is awake, alert, rv obeys commands, Oriented to person, place, time, situation. Cardiovascular: Capillary refill < 3 seconds. Respiratory: Airway is patent Respiratory effort is even, unlabored. GI: Bowel sounds present X 4 quads. Abd is soft and non tender X 4 quads. Vital Signs: 21:52 BP 119 / 83; Pulse 97; Resp 18; Temp 98.4(O); Pulse Ox 99% on R/A; Weight 83.91 kg; mb9 Height 5 ft. 4 in. ; Pain 8/10; 01/19 00:24 BP 108 / 77; Pulse 76; Resp 16; Temp 98; Pulse Ox 100% ; Pain 0/10; rv 01:24 BP 109 / 73; Pulse 65; Resp 15; Temp 98; Pulse Ox 100% ; Pain 0/10; rv 01/18 21:52 Body Mass Index 31.75 (83.91 kg, 162.56 cm) [facility] 01/18 21:52 Pain Scale: Adult mb9 01/19 00:24 Pain Scale: Adult rv 01:24 Pain Scale: Adult rv Angela Coma Score: 01:24 Eye Response: spontaneous(4). Motor Response: obeys commands(6). Verbal Response: rv oriented(5). Total: 15. ED Course: 01/18 21:46 Patient arrived in ED. es 21:50 Abdi Hendricks PA is PHCP. cp 21:50 Quentin Mauro MD is Attending Physician. cp 21:52 Arm band placed on. mb9 21:54 Triage completed. mb9 21:55 Placed in gown. Bed in low position. Call light in reach. Side rails up X 1. Client mb9 placed on continuous cardiac and pulse oximetry monitoring. NIBP monitoring applied. 22:18 Babar Schroeder, EV is Primary Nurse. rv 22:38 CBC with Diff Sent. rv 22:38 CMP Sent. rv 22:38 Lipase Sent. rv 22:38 Inserted saline lock: 20 gauge in right antecubital area, using aseptic technique. rv Blood collected. 23:04 XRAY Chest (1 view) In Process Unspecified. EDMS 23:16 US Abdomen Limited Sent. sb4 23:23 US Abdomen Limited In Process Unspecified. EDMS 01/19 00:27 No provider procedures requiring assistance completed. rv 01:19 Jorge Ramos MD is Referral Physician. cp 01:30 IV discontinued, intact, bleeding controlled, No redness/swelling at site. Pressure rv dressing applied. Administered Medications: 01/18 22:50 Drug: NS 0.9% IV 1000 ml Route: IV; Rate: 1 bolus; Site: right antecubital; rv 01/19 00:27 Follow up: IV Status: Completed infusion; IV Intake: 1000ml rv 01/18 22:50 Drug: Famotidine IVP 20 mg Route: IVP; Site: right antecubital; rv 01/19 00:27 Follow up: Response: No adverse reaction rv 01/18 22:51 Drug: Ondansetron IVP 4 mg Route: IVP; Site: right antecubital; rv 01/19 00:27 Follow up: Response: No adverse reaction rv 01/18 22:51 Drug: morphine IVP or IV 2 mg Route: IVP; Infused Over: 4 mins; Site: right antecubital;rv 01/19 00:26 Follow up: Response: No adverse reaction; Marked relief of symptoms rv 01:24 Drug: Rocephin - Rocephin (cefTRIAXone) IVPB 1 grams Route: IVPB; Infused Over: 30 rv mins; Site: right antecubital; : Follow up: Response: Medication administered at discharge.; IV Status: Completed rv infusion Medication: 00:27 VIS not applicable for this client. rv Intake: 00:27 IV: 1000ml; Total: 1000ml. rv Outcome: :20 Discharge ordered by . cp : Discharged to home ambulatory. rv : Condition: improved : Discharge instructions given to patient, Instructed on discharge instructions, follow up and referral plans. medication usage, Demonstrated understanding of instructions, follow-up care, medications, Prescriptions given X 3. :30 Patient left the ED. rv Addendum: 01/22/2023 11:12 Addendum: Culture Results: Positive urine culture. No further action required. Bacteria s s sensitive to prescribed antibiotic. Signatures: Dispatcher [employer] Chantelle Peres Shelby, RN RN Abdi Mendoza PA PA cp Vicente, Ronaldo, RN RN rv Brown, Sophia PA-C PA-C [id number] Ingris Simon RN RN mb9
[2023-01-19] MEDS ORDERED: WATER FOR INJ,STERILE 10 ML ONE (01:28)
[2023-01-19] MEDS ORDERED: CEFTRIAXONE 1000 MG/VIAL ONE (01:28)
[2023-01-19 02:18] VITALS: TEMP 98; O2SAT 100
[2023-01-19 02:20] VITALS: BP 109/73
--- NOTE | 2023-01-19 15:11 | RAD REPORT ---
EXAM DESCRIPTION: RAD - Chest Single View - 01/18/2023 11:02 pm CLINICAL HISTORY: The patient is 42 years old and is Female; epigastric pain TECHNIQUE: Frontal view of the chest. COMPARISON: No relevant prior studies available. FINDINGS: Lungs: Unremarkable. No consolidation. Pleural space: Unremarkable. No pneumothorax. Heart: Unremarkable. Mediastinum: Unremarkable. Bones/joints: Unremarkable. IMPRESSION: No acute findings in the chest. Electronically signed by: Ramana Hernandez MD 01/18/2023 11:58 PM CDT Due to temporary technical issues with the PACS/Fluency reporting system, reports are being signed by the in house radiologists without review as a courtesy to insure prompt reporting. The interpreting radiologist is fully responsible for the content of the report.
--- NOTE | 2023-01-19 15:14 | RAD REPORT ---
EXAM DESCRIPTION: US - Abdomen Exam Limited - 01/18/2023 11:21 pm CLINICAL HISTORY: The patient is 42 years old and is Female; epigastric/RUQ pain TECHNIQUE: Real-time ultrasound of the right upper quadrant with image documentation. COMPARISON: No relevant prior studies available. FINDINGS: GALLBLADDER: Sludge and a large gallstone present within the gallbladder. Gallstone is a t the level of the neck of the gallbladder. There is no gallbladder wall thickening. There is no rashad cholecystic fluid. The gallbladder is distended. COMMON BILE DUCT: Unremarkable as visualized. No stones. No dilation. IMPRESSION: Cholelithiasis and sludge without evidence to suggest acute cholecystitis. Electronically signed by: Telma Barksdale MD 01/19/2023 12:36 AM CDT Due to temporary technical issues with the PACS/Fluency reporting system, reports are being signed by the in house radiologists without review as a courtesy to insure prompt reporting. The interpreting radiologist is fully responsible for the content of the report.
== END 2023-01-19 01:30 | disposition home or self-care (01) ==
LOC: ER 21:34
DX: K80.80 Other cholelithiasis without obstruction (principal); N39.0 Urinary tract infection, site not specified; D64.9 Anemia, unspecified; F17.210 Nicotine dependence, cigarettes, uncomplicated
CPT/HCPCS: 96361; 87088; 85025; 81001; 87086; 36415; 81025; 87077; 87186; 83690; 80053; 71045; 76705; 96375; 96374; 99284; J2270; J2405; J7030; J0696

== ENCOUNTER 2024-07-28 07:53 | Emergency (ER) | payer OTHER, SELFPAY ==
--- OUTSIDE RECORDS SUMMARY | 2024-07-28 07:56 | XMS REPORT | Continuity of Care Document ---
Author Name Unknown Address [address] [facility] [address] th[address] Address [address] [facility] [address] [place] [address] Care Team Providers Care Chief Administrative Officer Name Role Phone Shekhar Crowell Attending Clinician Cassidy Hamlin Attending Clinician Shekhar Murphy Admitting Clinician Cesario garcia Payers Payer Name Policy Type Policy Number Effective Date Expirati on Date Source [facility] Women(HTW) P [id number] 2020 00:00:00 Allergies, Adverse Reactions, Alerts Allergy Name Allergy Type Status Severity Reaction(s) Onset Date Inactive Date Treating Clinician Comments Source No Known Allergie s DA Active U 08-24 00:00: 00 [facility] No Known Allergie s DA Active U 2017-08 00:00: 00 [facility] No Known Allergie s DA Active U 10-23 00:00: 00 [facility] Procedures Procedure Date / Time Performed Performing Clinicia n Source [id number] 2021-08-24 00:00:00 [email or web address].[email or web address] [facility] [id number] 2021-08-24 00:00:00 [email or web address].[email or web address] [facility] [id number] 2021-08-24 00:00:00 [email or web address].[email or web address] [facility] [id number] 2021-08-24 00:00:00 [email or web address].[email or web address] [facility] Encounters Start Date/Time End Date/Time Encounter Type Admission Type Attending Clinicians Care Facility Care Department Encounter ID Source 2021-08-16 05:04:35 Outpatient [facility] [id number] [facility] 2021-05-23 13:47:14 Outpatient [facility] [id number] [facility] 2021-05-23 08:42:29 Outpatient [facility] [id number] [facility] 2021-05-20 21:09:35 Outpatient [facility] [id number] [facility] 2021-10-08 06:19:00 2021-10-08 06:19:00 Outpatient RODRIGO MartinezSocratesShekhar [facility] DAYS [id number] [facility] 2021-08-24 06:48:00 2021-08-25 18:08:00 Inpatient Shekhar Boateng [facility] OBPP [id number] [facility] 2020-09-18 00:00:00 2020-09-18 00:00:00 Office Visit Cassidy Kerns [facility] Encounter/ [id number] [facility] Results Test Description Test Time Test Comments Results Result Co mments Source DIFFERENTIAL [id number] 08:33:00* Test Item Value Reference Range Interpretation Comme nts STAIN ACCEPTABILITY (test code = STN ACCEPTABLE) STAIN ACCEPTABLE CABOT RINGS (test code = CAB) MORPHOLOGY COMMENT (test code = MOC) NORMAL PLATELET ESTIMATE (test code = PLTEST) ADEQUATE PLATELET MORPHOLOGY (test code = PLTMORPH) SIZE VARIABLE POLYCHROMASIA (test code = POLC) 1+ HYPOCHROMIA (test code = HYPO) 1+ POIKILOCYTOSIS (test code = POIK) 1+ ANISOCYTOSIS (test code = ANISO) 2+ MICROCYTOSIS (test code = MICR) 2+ HCG SERUM [id number] 07:55:00* Test Item Value Reference Range Interpretation Comme nts HCG SERUM QUAL (test code = HCGQL) NEGATIVE NEGATIVE This HCGQL test is NOT applicable for MALE patients.Check with nurse about probable order error.If Tumor Marker Test needed, nurse should order test "HCGTU"(Test #550.84325) COVID 19 Asymptomatic IH [id number] 06:38:00* Test Item Value Reference Range Interpretation Comme nts COVID 19 Asymptomatic IH AG (test code = COVNONPUIAG) NEGATIVE NEGATIVE CBC W/AUTO [id number] 06:38:00* Test Item Value Reference Range Interpretation Comme nts WHITE BLOOD CELL (test code = WBC) 7.8 K/mm3 4.5-12.5 N RED BLOOD CELL (test code = RBC) 3.77 mill/mm3 3.7-5.2 N HEMOGLOBIN (test code = HGB) 7.9 gram/dL 11.5-15.5 L HEMATOCRIT (test code = HCT) 25.8 % 36.0-46.0 L MEAN CELL VOLUME (test code = MCV) 68.4 fL 80-98 L MEAN CELL HGB (test code = MCH) 21.0 picogram 27.0-33.0 L MEAN CELL HGB CONCETRATION (test code = MCHC) 30.6 gram/dL 33.0-36.0 L RED CELL DISTRIBUTION WIDTH (test code = RDW) 17.4 % 11.6-16.2 H RED CELL DISTRIBUTION WIDTH SD (test code = RDW-SD) 42.9 fL 37.0-51.0 N PLATELET COUNT (test code = PLT) 181 K/mm3 150-450 N MEAN PLATELET VOLUME (test c ode = MPV) 11.6 fL 6.7-11.0 H NEUTROPHIL % (test code = NT%) 73.3 % 39.0-69.0 H IMMATURE GRANULOCYTE % (test code = IG%) 0.3 % 0.0-5.0 N LYMPHOCYTE % (test code = LY%) 20.5 % 25.0-55.0 L MONOCYTE % (test code = MO%) 5.0 % 0.0-10.0 N EOSINOPHIL % (test code = EO%) 0.5 % 0.0-5.0 N BASOPHIL % (test code = BA%) 0.4 % 0.0-1.0 N NUCLEATED RBC % (test code = NRBC%) 0.0 % 0-0 N NEUTROPHIL # (test code = NT#) 5.73 K/mm3 1.8-7.7 N IMMATURE GRANULOCYTE # (test code = IG#) 0.02 x10 3/uL 0-0.03 N LYMPHOCYTE # (test code = LY#) 1.60 K/mm3 1.0-5.0 N MONOCYTE # (test code = MO#) 0.39 K/mm3 0-0.8 N EOSINOPHIL # (test code = EO#) 0.04 K/mm3 0.0-0.5 N BASOPHIL # (test code = BA#) 0.03 K/mm3 0.0-0.2 N NUCLEATED RBC # (test code = NRBC#) 0.00 K/mm3 0.0-0.1 N MANUAL DIFF REQUIRED (test c ode = MDIFF) NO SPECIMEN COMMENTS: day 1HIV 1 2 COMBO AG/AB [id number] 10:06:00 * Test Item Value Reference Range Interpretation Comme nts HIV 1 2 COMBO AG/AB SCREEN (test code = [id number]) AB/AG NON REACTIVE NONREACTIVE NONREACTIVE HIV P24 ANTIGEN NONREACTIVE NONREACTIVE HIV 1&2 ANTIBODY NONREACTIVE THE HIV-1 P24 TEST HELPS DISTINGUISH ACUTE HIV-1INFECTIONFROM ESTABLISHED HIV-1 INFECTION WHEN THE SPECIMEN ISPOSITIVE FOR HIV-1 P24 ANTIGEN. HIV-1 P24 ANTIGEN IS HIGHEST IN THE FIRST FEW WEEKS AFTERINFECTION AG HEPAT B [id number] 09:40:00* Test Item Value Reference Range Interpretation Comme nts AG HEPAT B SURF (test code = HBSAG) NonReactive Index Nonreactive URINALYSIS [id number] 09:11:00* Test Item Value Reference Range Interpretation Comme nts UA COLOR (test code = COLU) YELLOW YELLOW UA APPEARANCE (test code = APPU) CLOUDY CLEAR A UA GLUCOSE DIPSTICK (test code = DGLUU) NEGATIVE mg/dL NEGATIVE UA BILIRUBIN DIPSTICK (test code = BILU) NEGATIVE NEGATIVE UA KETONE DIPSTICK (test code = KETU) NEGATIVE mg/dL NEGATIVE UA SPECIFIC GRAVITY (test code = SGU) >=1.030 1.001-1.035 UA BLOOD DIPSTICK (test code = JOSH) TRACE NEGATIVE UA PH DIPSTICK (test code = DC) 6.0 5.0-8.0 UA PROTEIN DIPSTICK (test code = PROU) TRACE (15) mg/dL Neg-15 UA UROBILINIOGEN DIPSTICK (test code = URO) 1 mg/dL (1+) mg/dL 0.0-0.2 UA NITRITE DIPSTICK (test code = JACOB) NEGATIVE NEGATIVE UA LEUKOCYTE ESTERASE W REFLEX (test code = LEUUR) 2+ NEGATIVE A UA WBC (test code = WBCU) 5-10 per HPF 0-5 A UA RBC (test code = RBCU) 0-3 per HPF 0-5 UA EPITHELIAL CELLS (test code = EPIU) per HPF Few UA BACTERIA (test code = BACU) MODERATE per HPF NONE A AG HEPAT B [id number] 12:18:00* Test Item Value Reference Range Interpretation Comme nts AG HEPAT B SURF (test code = HBSAG) NonReactive Index Nonreactive AB [id number] 12:18:00* Test Item Value Reference Range Interpretation Comme nts AB TREPONEMA (test code = TREPAB) Negative Index NonReactive COVID 19 Asymptomatic IH [id number] 11:48:00* Test Item Value Reference Range Interpretation Comme nts COVID 19 Asymptomatic IH AG (test code = COVNONPUIAG) NEGATIVE NEGATIVE CBC W/AUTO [id number] 11:37:00* Test Item Value Reference Range Interpretation Comme nts WHITE BLOOD CELL (test code = WBC) 7.4 K/mm3 4.5-12.5 N RED BLOOD CELL (test code = RBC) 4.54 mill/mm3 3.7-5.2 N HEMOGLOBIN (test code = HGB) 9.5 gram/dL 11.5-15.5 L HEMATOCRIT (test code = HCT) 31.7 % 36.0-46.0 L MEAN CELL VOLUME (test code = MCV) 69.8 fL 80-98 L MEAN CELL HGB (test code = MCH) 20.9 picogram 27.0-33.0 L MEAN CELL HGB CONCETRATION (test code = MCHC) 30.0 gram/dL 33.0-36.0 L RED CELL DISTRIBUTION WIDTH (test code = RDW) 17.4 % 11.6-16.2 H RED CELL DISTRIBUTION WIDTH SD (test code = RDW-SD) 43.8 fL 37.0-51.0 N PLATELET COUNT (test code = PLT) 216 K/mm3 150-450 N MEAN PLATELET VOLUME (test c ode = MPV) 10.4 fL 6.7-11.0 N NEUTROPHIL % (test code = NT%) 69.2 % 39.0-69.0 H IMMATURE GRANULOCYTE % (test code = IG%) 0.3 % 0.0-5.0 N LYMPHOCYTE % (test code = LY%) 25.2 % 25.0-55.0 N MONOCYTE % (test code = MO%) 4.5 % 0.0-10.0 N EOSINOPHIL % (test code = EO%) 0.5 % 0.0-5.0 N BASOPHIL % (test code = BA%) 0.3 % 0.0-1.0 N NUCLEATED RBC % (test code = NRBC%) 0.0 % 0-0 N NEUTROPHIL # (test code = NT#) 5.09 K/mm3 1.8-7.7 N IMMATURE GRANULOCYTE # (test code = IG#) 0.02 x10 3/uL 0-0.03 N LYMPHOCYTE # (test code = LY#) 1.85 K/mm3 1.0-5.0 N MONOCYTE # (test code = MO#) 0.33 K/mm3 0-0.8 N EOSINOPHIL # (test code = EO#) 0.04 K/mm3 0.0-0.5 N BASOPHIL # (test code = BA#) 0.02 K/mm3 0.0-0.2 N NUCLEATED RBC # (test code = NRBC#) 0.00 K/mm3 0.0-0.1 N MANUAL DIFF REQUIRED (test c ode = MDIFF) NO LACTIC [id number] 16:15:00* Test Item Value Reference Range Interpretation Comme nts LACTIC ACID (test code = LACT) 1.2 mmol/L 0.4-1.9 N COMPREHENSIVE METABOLIC [id number] 16:03:00* Test Item Value Reference Range Interpretation Comme nts SODIUM (test code = NA) 139 mmol/L 135-148 N POTASSIUM (test code = K) 3.8 mmol/L 3.5-5.1 N CHLORIDE (test code = CL) 102 mmol/L 101-109 N CARBON DIOXIDE (test code = CO2) 27.0 mmol/L 21-32 N ANION GAP (test code = GAP) 14 mmol/L 10-20 N GLUCOSE (test code = GLU) 92 mg/dL 74-106 N BLOOD UREA NITROGEN (test code = BUN) 9 mg/dL 3-21 N CREATININE (test code = CREAT) 0.79 mg/dL 0.55-1.3 N BUN/CREATININE RATIO (test code = BUN/CREA) 11.4 10-20 N TOTAL PROTEIN (test code = PROT) 7.6 g/dL 6.5-8.4 N ALBUMIN (test code = ALB) 3.5 g/dL 3.4-4.8 N GLOBULIN (test code = GLOB) 4.1 G/DL 1-10 N ALBUMIN/GLOBULIN RATIO (test code = A/G) 0.9 RATIO 0.75-1.50 N CALCIUM (test code = CA) 8.3 mg/dL 8.4-10.2 L BILIRUBIN TOTAL (test code = BILT) 0.60 mg/dL 0.0-1.0 N SGOT/AST (test code = AST) 11 U/L 6-32 N SGPT/ALT (test code = ALT) 16 U/L 12-78 N Note: Change in REFERENCE RANGE due to new reagent method. ALKALINE PHOSPHATASE TOTAL (test code = ALKP) 60 U/L 38-126 N [id number] 16:03:00* Test Item Value Reference Range Interpretation Comme nts LIPASE (test code = LIP) 135 U/L 128-270 N URINALYSIS [id number] 16:00:00* Test Item Value Reference Range Interpretation Comme nts UA COLOR (test code = COLU) LIGHT YELLOW YELLOW UA APPEARANCE (test code = APPU) Cloudy CLEAR A UA GLUCOSE DIPSTICK (test code = DGLUU) norm mg/dL NEGATIVE UA BILIRUBIN DIPSTICK (test code = BILU) NEGATIVE mg/dL NEGATIVE UA KETONE DIPSTICK (test code = KETU) neg mg/dL NEGATIVE UA SPECIFIC GRAVITY (test code = SGU) 1.015 1.001-1.035 UA BLOOD DIPSTICK (test code = JOSH) 10 (Trace) Lc/uL NEGATIVE A UA PH DIPSTICK (test code = DC) 9.0 5.0-8.0 A UA PROTEIN DIPSTICK (test code = PROU) 30 (1+) mg/dL Neg-15 A UA UROBILINIOGEN DIPSTICK (test code = URO) 1 mg/dL 0.0-0.2 A UA NITRITE DIPSTICK (test code = JACOB) POSITIVE NEGATIVE UA LEUKOCYTE ESTERASE DIPSTICK (test code = LEUU) 500 Neal/uL (3+) uL NEGATIVE A UA WBC (test code = WBCU) 40-50 per HPF 0-5 A UA RBC (test code = RBCU) 0-3 per HPF 0-5 UA EPITHELIAL CELLS (test code = EPIU) Few (2-5/hpf) per HPF Few UA BACTERIA (test code = BACU) LOADED per HPF NONE A UA MUCUS (test code = MUCU) FEW per LPF NONE-FEW Urine Source? Clean CatchUR HCG [id number] 16:00:00* Test Item Value Reference Range Interpretation Comme nts UR HCG QUAL (test code = HCGQLU) NEGATIVE This HCGQL test is NOT applicable for MALE patients.Check with nurse about probable order error.If Tumor Marker Test needed, nurse should order test "HCGTU"(Test #550.77059) Urine Source? Clean CatchDRUGS OF ABUSE SCREEN [id number] 16:00:00* Test Item Value Reference Range Interpretation Comme nts URN COCAINE (test code = COCAURN) NEGATIVE NEGATIVE URN CANNABINOIDS (test code = CANNABURN) NEGATIVE NEGATIVE URN AMPHETAMINE (test code = AMPHETURN) NEGATIVE NEGATIVE URN BARBITURATE (test code = BARBITURN) NEGATIVE NEGATIVE URN BENZODIAZEPINE (test cod e = BENZOURN) NEGATIVE NEGATIVE URN OPIATES (test code = OPIATURN) NEGATIVE NEGATIVE URN PHENCYCLIDINE (PCP) (shira t code = PHENCURN) NEGATIVE NEGATIVE Urine Source? Clean CatchURINALYSIS [id number] 15:57:00* Test Item Value Reference Range Interpretation Comme nts UA COLOR (test code = COLU) LIGHT YELLOW YELLOW UA APPEARANCE (test code = APPU) Cloudy CLEAR A UA GLUCOSE DIPSTICK (test code = DGLUU) norm mg/dL NEGATIVE UA BILIRUBIN DIPSTICK (test code = BILU) NEGATIVE mg/dL NEGATIVE UA KETONE DIPSTICK (test code = KETU) neg mg/dL NEGATIVE UA SPECIFIC GRAVITY (test code = SGU) 1.015 1.001-1.035 UA BLOOD DIPSTICK (test code = JOSH) 10 (Trace) Lc/uL NEGATIVE A UA PH DIPSTICK (test code = DC) 9.0 5.0-8.0 A UA PROTEIN DIPSTICK (test code = PROU) 30 (1+) mg/dL Neg-15 A UA UROBILINIOGEN DIPSTICK (test code = URO) 1 mg/dL 0.0-0.2 A UA NITRITE DIPSTICK (test code = JACOB) POSITIVE NEGATIVE UA LEUKOCYTE ESTERASE DIPSTICK (test code = LEUU) 500 Neal/uL (3+) uL NEGATIVE A UA WBC (test code = WBCU) 40-50 per HPF 0-5 A UA RBC (test code = RBCU) 0-3 per HPF 0-5 UA EPITHELIAL CELLS (test code = EPIU) Few (2-5/hpf) per HPF Few UA BACTERIA (test code = BACU) LOADED per HPF NONE A UA MUCUS (test code = MUCU) FEW per LPF NONE-FEW Urine Source? Clean CatchUR HCG [id number] 15:57:00* Test Item Value Reference Range Interpretation Comme nts UR HCG QUAL (test code = HCGQLU) NEGATIVE This HCGQL test is NOT applicable for MALE patients.Check with nurse about probable order error.If Tumor Marker Test needed, nurse should order test "HCGTU"(Test #550.88342) Urine Source? Clean CatchDRUGS OF ABUSE SCREEN [id number] 15:57:00* Test Item Value Reference Range Interpretation Comme nts URN COCAINE (test code = COCAURN) NEGATIVE URN CANNABINOIDS (test code = CANNABURN) NEGATIVE URN AMPHETAMINE (test code = AMPHETURN) NEGATIV E URN BARBITURATE (test code = BARBITURN) NEGATIV E URN BENZODIAZEPINE (test cod e = BENZOURN) NEGATIVE URN OPIATES (test code = OPIATURN) NEGATIVE URN PHENCYCLIDINE (PCP) (shira t code = PHENCURN) NEGATIVE Urine Source? Clean CatchURINALYSIS [id number] 15:48:00* Test Item Value Reference Range Interpretation Comme nts UA COLOR (test code = COLU) LIGHT YELLOW YELLOW UA APPEARANCE (test code = APPU) Cloudy CLEAR A UA GLUCOSE DIPSTICK (test code = DGLUU) norm mg/dL NEGATIVE UA BILIRUBIN DIPSTICK (test code = BILU) NEGATIVE mg/dL NEGATIVE UA KETONE DIPSTICK (test code = KETU) neg mg/dL NEGATIVE UA SPECIFIC GRAVITY (test code = SGU) 1.015 1.001-1.035 UA BLOOD DIPSTICK (test code = JOSH) 10 (Trace) Lc/uL NEGATIVE A UA PH DIPSTICK (test code = DC) 9.0 5.0-8.0 A UA PROTEIN DIPSTICK (test code = PROU) 30 (1+) mg/dL Neg-15 A UA UROBILINIOGEN DIPSTICK (test code = URO) 1 mg/dL 0.0-0.2 A UA NITRITE DIPSTICK (test code = JACOB) POSITIVE NEGATIVE UA LEUKOCYTE ESTERASE DIPSTICK (test code = LEUU) 500 Neal/uL (3+) uL NEGATIVE A UA WBC (test code = WBCU) per HPF 0-5 UA RBC (test code = RBCU) per HPF 0-5 UA EPITHELIAL CELLS (test code = EPIU) per HPF Few UA BACTERIA (test code = BACU) per HPF NONE Urine Source? Clean CatchUR HCG [id number] 15:48:00* Test Item Value Reference Range Interpretation Comme nts UR HCG QUAL (test code = HCGQLU) NEGATIVE This HCGQL test is NOT applicable for MALE patients.Check with nurse about probable order error.If Tumor Marker Test needed, nurse should order test "HCGTU"(Test #550.35335) Urine Source? Clean CatchDRUGS OF ABUSE SCREEN [id number] 15:48:00* Test Item Value Reference Range Interpretation Comme nts URN COCAINE (test code = COCAURN) NEGATIVE URN CANNABINOIDS (test code = CANNABURN) NEGATIVE URN AMPHETAMINE (test code = AMPHETURN) NEGATIV E URN BARBITURATE (test code = BARBITURN) NEGATIV E URN BENZODIAZEPINE (test cod e = BENZOURN) NEGATIVE URN OPIATES (test code = OPIATURN) NEGATIVE URN PHENCYCLIDINE (PCP) (shira t code = PHENCURN) NEGATIVE Urine Source? Clean CatchURINALYSIS [id number] 15:47:00* Test Item Value Reference Range Interpretation Comme nts UA COLOR (test code = COLU) LIGHT YELLOW YELLOW UA APPEARANCE (test code = APPU) Cloudy CLEAR A UA GLUCOSE DIPSTICK (test code = DGLUU) norm mg/dL NEGATIVE UA BILIRUBIN DIPSTICK (test code = BILU) NEGATIVE mg/dL NEGATIVE UA KETONE DIPSTICK (test code = KETU) neg mg/dL NEGATIVE UA SPECIFIC GRAVITY (test code = SGU) 1.015 1.001-1.035 UA BLOOD DIPSTICK (test code = JOSH) 10 (Trace) Lc/uL NEGATIVE A UA PH DIPSTICK (test code = DC) 9.0 5.0-8.0 A UA PROTEIN DIPSTICK (test code = PROU) 30 (1+) mg/dL Neg-15 A UA UROBILINIOGEN DIPSTICK (test code = URO) 1 mg/dL 0.0-0.2 A UA NITRITE DIPSTICK (test code = JACOB) POSITIVE NEGATIVE UA LEUKOCYTE ESTERASE DIPSTICK (test code = LEUU) 500 Neal/uL (3+) uL NEGATIVE A UA WBC (test code = WBCU) per HPF 0-5 UA RBC (test code = RBCU) per HPF 0-5 UA EPITHELIAL CELLS (test code = EPIU) per HPF Few UA BACTERIA (test code = BACU) per HPF NONE Urine Source? Clean CatchUR HCG [id number] 15:47:00* Test Item Value Reference Range Interpretation Comme nts UR HCG QUAL (test code = HCGQLU) Urine Source? Clean CatchDRUGS OF ABUSE SCREEN [id number] 15:47:00* Test Item Value Reference Range Interpretation Comme nts URN COCAINE (test code = COCAURN) NEGATIVE URN CANNABINOIDS (test code = CANNABURN) NEGATIVE URN AMPHETAMINE (test code = AMPHETURN) NEGATIV E URN BARBITURATE (test code = BARBITURN) NEGATIV E URN BENZODIAZEPINE (test cod e = BENZOURN) NEGATIVE URN OPIATES (test code = OPIATURN) NEGATIVE URN PHENCYCLIDINE (PCP) (shira t code = PHENCURN) NEGATIVE Urine Source? Clean CatchCBC W/AUTO [id number] 15:43:00* Test Item Value Reference Range Interpretation Comme nts WHITE BLOOD CELL (test code = WBC) 11.8 K/mm3 4.5-12.5 N RED BLOOD CELL (test code = RBC) 4.64 mill/mm3 3.7-5.2 N HEMOGLOBIN (test code = HGB) 11.2 gram/dL 11.5-15.5 L HEMATOCRIT (test code = HCT) 35.2 % 36.0-46.0 L MEAN CELL VOLUME (test code = MCV) 75.9 fL 80-98 L MEAN CELL HGB (test code = MCH) 24.1 picogram 27.0-33.0 L MEAN CELL HGB CONCETRATION (test code = MCHC) 31.8 gram/dL 33.0-36.0 L RED CELL DISTRIBUTION WIDTH (test code = RDW) 15.0 % 11.6-16.2 N RED CELL DISTRIBUTION WIDTH SD (test code = RDW-SD) 41.0 fL 37.0-51.0 N PLATELET COUNT (test code = PLT) 272 K/mm3 150-450 N MEAN PLATELET VOLUME (test c ode = MPV) 10.7 fL 6.7-11.0 N NEUTROPHIL % (test code = NT%) 84.5 [...] K/mm3 0.0-0.2 N MANUAL DIFF REQUIRED (test c ode = MDIFF) NO
[2024-07-28] MEDS ORDERED: NA CHLORIDE 0.9% 1,000 ML ONE (08:14)
[2024-07-28] MEDS ORDERED: MECLIZINE HCL 12.5 MG TAB ONE (08:14)
[2024-07-28] MEDS ORDERED: ONDANSETRON 4 MG/2 ML VIAL ONE (08:14)
[2024-07-28 08:35] LABS: Absolute Lymphocytes (CBC) 1.3 K/uL (0.7-4.9); Absolute Monocytes 0.3 K/uL (0.1-1.3); Absolute Neutrophil 5.1 K/uL (1.8-8.0); Basophils % 0.6 % (0-1.3); Eosinophils % 0.6 % (0-4.4); Hematocrit 35.8 % (36.0-45.0); Hemoglobin 11.5 g/dL (12.0-15.0); Lymphocytes % 19.7 % (15.3-44.8); MCH 23.5 pg (27.0-35.0); MCV 73.3 fL (80-100); MPV 8.2 fL (7.6-11.3); Neutrophils % 75.1 % (41.7-73.7); Platelets 283 thou/uL (152-406); RBC Red Blood Cell Count 4.88 M/uL (3.86-4.86); Red Cell Distribution Width 16.5 % (12.1-15.2)
[2024-07-28 09:01] LABS: ALT/SGPT 17 U/L (13-56); Albumin 3.5 g/dL (3.4-5.0); Albumin/Globulin Ratio 0.7 (1.1-1.8); Alkaline Phosphatase 64 U/L (45-117); Anion Gap 7.8 mEq/L (5.0-15.0); BUN Blood Urea Nitrogen 10 mg/dL (7-18); Bicarbonate 27 mEq/L (21-32); Bilirubin Total 0.5 mg/dL (0.2-1.0); Globulin 4.7 g/dL (2.3-3.5); Glomerular Filtration Rate 111 ml/min (=/>90); Glucose Level 99 mg/dL (74-106); Protein, Total 8.2 g/dL (6.4-8.2); Sodium Level 137 mEq/L (136-145)
[2024-07-28 09:02] LABS: AST/SGOT 17 U/L (15-37); Potassium 3.8 mEq/L (3.5-5.1); Troponin High Sensitivity < 3.0 pg/mL (<58.9)
--- NOTE | 2024-07-28 09:05 | RAD REPORT ---
EXAM: CT brain without contrast HISTORY: DIZZINESS COMPARISON: None TECHNIQUE: Multiple contiguous axial images were obtained and a CT of the brain without contrast. Sag ittal and coronal reformats were performed. One or more of the following dose reduction techniques were used: Automated exposure control, adjust ment of the mA and/or kV according to patient size, and/or iterative reconstruction. FINDINGS: No evidence of hydrocephalus, intracranial hemorrhage, or extra-axial fluid collection. The brain is normal in morphology. No evidence of midline shift or areas of brain edema. The calvarium is intact. There is extensive paranasal sinus opacification as well as complete opacifi cation of both mastoid air cells. IMPRESSION: No evidence of acute intracranial abnormality. Extensive paranasal sinus opacification. Complete opacification of both mastoid air cells.
--- NOTE | 2024-07-28 09:36 | ER ---
Nurse's Notes [facility] Stefanit Name: Coby Rueda Age: 44 yrs Sex: Female : 1980 Arrival Date: 07/28/2024 Time: 07:53 Bed 4 Private MD: Diagnosis: Dizziness and giddiness;Benign paroxysmal vertigo, unspecified ear;Nausea;Acute pansinusitis Presentation: 07/28 08:02 Chief complaint: Patient states: is real dizzy and sick to stomach , keeps throwing up iw , started yesterday , has issues with her ears for a few years and she can hardly hear anything now. Coronavirus screen: At this time, the client does not indicate any symptoms associated with coronavirus-19. Ebola Screen: No symptoms or risks identified at this time. Initial Sepsis Screen: Does the patient meet any 2 criteria? No. Patient's initial sepsis screen is negative. Does the patient have a suspected source of infection? No. Patient's initial sepsis screen is negative. Risk Assessment: Do you want to hurt yourself or someone else? Patient reports no desire to harm self or others. Onset of symptoms was July 27, 2024. 08:02 Method Of Arrival: Ambulatory iw 08:02 Acuity: KIERRA 3 iw Historical: - Allergies: 08:03 No Known Allergies; iw - Home Meds: 08:03 None [Active]; iw - PMHx: 08:03 None; iw - PSHx: 08:03 None; iw - Immunization history:: Adult Immunizations not up to date. - Infectious Disease History:: Denies. - Social history:: Smoking status: Patient denies any tobacco usage or history of. - Family history:: not pertinent. Screenin:29 [facility] ED Fall Risk Assessment (Adult) History of falling in the last 3 months, kc6 including since admission No falls in past 3 months (0 pts) Confusion or Disorientation No (0 pts) Intoxicated or Sedated No (0 pts) Impaired Gait No (0 pts) Mobility Assist Device Used No (0 pt) Altered Elimination No (0 pt) Score/Fall Risk Level 0 - 2 = Low Risk Oriented to surroundings, Maintained a safe environment. Abuse screen: Denies threats or abuse. Denies injuries from another. Nutritional screening: No deficits noted. Tuberculosis screening: No symptoms or risk factors identified. Assessment: 08:29 General: Appears in no apparent distress. comfortable, well groomed, well developed, kc6 Behavior is calm, cooperative, appropriate for age. Pain: Denies pain. Neuro: Level of Consciousness is awake, alert, obeys commands, Oriented to person, place, time, situation, Appropriate for age Reports dizziness. Cardiovascular: Capillary refill < 3 seconds. Respiratory: Airway is patent Trachea midline Respiratory effort is even, unlabored, Respiratory pattern is regular, symmetrical. GI: Abdomen is flat, non-distended, Reports nausea, vomiting, Patient currently denies abdominal pain, diarrhea. : No signs and/or symptoms were reported regarding the genitourinary system. EENT: No signs and/or symptoms were reported regarding the EENT system. Derm: No signs and/or symptoms reported regarding the dermatologic system. Skin is intact, is healthy with good turgor, Skin is pink, warm \T\ dry. Musculoskeletal: No signs and/or symptoms reported regarding the musculoskeletal system. Circulation, motion, and sensation intact. Capillary refill < 3 seconds, Range of motion: intact in all extremities. 09:29 Reassessment: Patient appears in no apparent distress at this time. No changes from kc6 previously documented assessment. Patient and/or family updated on plan of care and expected duration. Pain level reassessed. Patient is alert, oriented x 3, equal unlabored respirations, skin warm/dry/pink. 10:20 Reassessment: Patient appears in no apparent distress at this time. No changes from kc6 previously documented assessment. Patient and/or family updated on plan of care and expected duration. Pain level reassessed. Patient is alert, oriented x 3, equal unlabored respirations, skin warm/dry/pink. Patient states feeling better. Patient states symptoms have improved. Vital Signs: 08:02 BP 138 / 96; Pulse 79; Resp 16; Temp 96.8; Pulse Ox 100% on R/A; Weight 82.55 kg; iw Height 5 ft. 4 in. ; Pain 0/10; 10:25 BP 135 / 90; Pulse 85; Resp 18 S; Temp 97.6(TE); Pulse Ox 99% on R/A; kc6 08:02 Body Mass Index 31.24 (82.55 kg, 162.56 cm) iw 08:02 Pain Scale: Adult iw ED Course: 07:56 Patient arrived in ED. ra3 07:59 Abdi Gorman MD is Attending Physician. aaron 08:03 Triage completed. iw 08:04 Arm band placed on. iw 08:11 Alba Garrison, EV is Primary Nurse. kc6 08:29 Patient has correct armband on for positive identification. Bed in low position. Call kc6 light in reach. Side rails up X 1. Adult w/ patient. Pulse ox on. NIBP on. Door closed. Noise minimized. Lights dimmed. Pillow given. 08:29 CBC with Diff Sent. kc6 08:29 Comprehensive Metabolic Panel Sent. kc6 08:29 Troponin High Sensitivity Sent. kc6 08:29 Inserted saline lock: 20 gauge in right forearm, using aseptic technique. Blood kc6 collected. Flushed with 10 mL NS. Patient maintains SpO2 saturation greater than 95% on room air. 09:01 CT Head Brain wo Cont In Process Unspecified. EDMS 09:34 Reed Boyce MD is Referral Physician. aaron 09:44 PREGU Sent. kc6 09:44 Urinalysis w/ reflexes Sent. kc6 10:26 No provider procedures requiring assistance completed. IV discontinued, intact, kc6 bleeding controlled, No redness/swelling at site. Pressure dressing applied. Administered Medications: 08:29 Drug: NS 0.9% IV 1000 ml IV at 1000 ml once; to be given as a bolus over 60 minutes kc6 Route: IV; Rate: 1000 ml; Site: right forearm; 10:20 Follow up: Response: No adverse reaction; IV Status: Completed infusion; IV Intake: kc6 1000ml 08:29 Drug: Ondansetron IVP 4 mg IVP once; over 2 minutes Route: IVP; Site: right forearm; kc6 09:44 Follow up: Response: No adverse reaction kc6 08:29 Drug: Meclizine PO 50 mg PO once Route: PO; kc6 09:44 Follow up: Response: No adverse reaction kc6 10:08 Drug: Rocephin IV 1 grams IV at per protocol once; Given slow IV push per pharmacy kc6 instructions Route: IV; Rate: per protocol; Site: right antecubital; 10:20 Follow up: Response: No adverse reaction; IV Status: Completed infusion; IV Intake: [id number] 10:08 Drug: Amoxicillin-Clavulanate PO 875 mg PO once Route: PO; kc6 10:20 Follow up: Response: No adverse reaction kc6 Medication: 10:26 VIS not applicable for this client. kc6 Intake: 10:20 IV: 50ml; Total: 50ml. kc6 10:20 IV: 1000ml; Total: 1050ml. kc6 Outcome: 09:34 Discharge ordered by . aaron 10:26 Discharged to home ambulatory, with family, kevon 10:26 Condition: good 10:26 Discharge instructions given to patient, family, Instructed on discharge instructions, follow up and referral plans. medication usage, Demonstrated understanding of instructions, follow-up care, medications, Prescriptions given X 4, 10:26 Patient left the ED. kc6 Addendum: 07/31/2024 10:38 Addendum: Culture Results: Positive urine culture. No further action required. Bacteria i w sensitive to prescribed antibiotic. Signatures: Dispatcher [employer] EDMS Abdi Gorman MD MD cha Williams, Irene, RN Alba Lerma RN RN kcMila Kennedy ra3 Corrections: (The following items were deleted from the chart) 07/28 08:03 08:02 Chief complaint: Patient states: is real dizzy and sick to stomach , keeps iw throwing up , started yesterday iw
--- NOTE | 2024-07-28 09:36 | EDPHYS ---
Physician Documentation [facility] Name: Coby Rueda Age: 44 yrs Sex: Female : 1980 Arrival Date: 07/28/2024 Time: 07:53 Bed 4 Private MD: ERIC Physician Abdi Gorman HPI: 07/28 08:42 This 44 yrs old Female presents to ER via Ambulatory with complaints of aaron Dizziness. 08:42 The patient presents with dizziness, lightheadedness. Onset: The symptoms/episode aaron began/occurred 2 day(s) ago. Context: occurred while the patient was unknown. Modifying factors: The symptoms are alleviated by holding head still, the symptoms are aggravated by movement of head. Associated signs and symptoms: The patient has no apparent associated signs or symptoms. Severity of symptoms: At their worst the symptoms were moderate in the emergency department the symptoms are unchanged. Patient's baseline: Neuro:. The patient has experienced similar episodes in the past, a few times. Historical: - Allergies: 08:03 No Known Allergies; iw - Home Meds: 08:03 None [Active]; iw - PMHx: 08:03 None; iw - PSHx: 08:03 None; iw - Immunization history:: Adult Immunizations not up to date. - Infectious Disease History:: Denies. - Social history:: Smoking status: Patient denies any tobacco usage or history of. - Family history:: not pertinent. ROS: 08:42 Constitutional: Negative for fever, chills, and weight loss, Eyes: Negative for injury, aaron pain, redness, and discharge, ENT: Negative for injury, pain, and discharge, Neck: Negative for injury, pain, and swelling, Cardiovascular: Negative for chest pain, palpitations, and edema, Respiratory: Negative for shortness of breath, cough, wheezing, and pleuritic chest pain, Abdomen/GI: Negative for abdominal pain, nausea, vomiting, diarrhea, and constipation, Back: Negative for injury and pain, : Negative for injury, bleeding, discharge, and swelling, MS/Extremity: Negative for injury and deformity, Skin: Negative for injury, rash, and discoloration, Psych: Negative for depression, anxiety, suicide ideation, homicidal ideation, and hallucinations, Allergy/Immunology: Negative for hives, rash, and allergies, Endocrine: Negative for neck swelling, polydipsia, polyuria, polyphagia, and marked weight changes, Hematologic/Lymphatic: Negative for swollen nodes, abnormal bleeding, and unusual bruising, 08:42 Neuro: Positive for dizziness, Exam: 08:42 Constitutional: This is a well developed, well nourished patient who is awake, alert, aaron and in no acute distress. Head/Face: Normocephalic, atraumatic. ENT: Nares patent. No nasal discharge, no septal abnormalities noted. Tympanic membranes are normal and external auditory canals are clear. Oropharynx with no redness, swelling, or masses, exudates, or evidence of obstruction, uvula midline. Mucous membranes moist. Neck: Trachea midline, no thyromegaly or masses palpated, and no cervical lymphadenopathy. Supple, full range of motion without nuchal rigidity, or vertebral point tenderness. No Meningismus. Chest/axilla: Normal chest wall appearance and motion. Nontender with no deformity. No lesions are appreciated. Cardiovascular: Regular rate and rhythm with a normal S1 and S2. No gallops, murmurs, or rubs. Normal PMI, no JVD. No pulse deficits. Respiratory: Lungs have equal breath sounds bilaterally, clear to auscultation and percussion. No rales, rhonchi or wheezes noted. No increased work of breathing, no retractions or nasal flaring. Abdomen/GI: Soft, non-tender, with normal bowel sounds. No distension or tympany. No guarding or rebound. No evidence of tenderness throughout. Back: No spinal tenderness. No costovertebral tenderness. Full range of motion. Female : Normal external genitalia. Skin: Warm, dry with normal turgor. Normal color with no rashes, no lesions, and no evidence of cellulitis. MS/ Extremity: Pulses equal, no cyanosis. Neurovascular intact. Full, normal range of motion., bilateral aka Neuro: Awake and alert, GCS 15, oriented to person, place, time, and situation. Cranial nerves II-XII grossly intact. Motor strength 5/5 in all extremities. Sensory grossly intact. Cerebellar exam normal. Normal gait. 08:42 Eyes: Extraocular movements: no acute changes, Conjunctiva: normal, Corneas: are normal, Sclera: no appreciated abnormality, Anterior chamber: normal, Nystagmus: nystagmus with fast component noted, bilaterally, 08:59 ECG was reviewed by the Attending Physician. [facility] Vital Signs: 08:02 BP 138 / 96; Pulse 79; Resp 16; Temp 96.8; Pulse Ox 100% on R/A; Weight 82.55 kg; iw Height 5 ft. 4 in. ; Pain 0/10; 10:25 BP 135 / 90; Pulse 85; Resp 18 S; Temp 97.6(TE); Pulse Ox 99% on R/A; kc6 08:02 Body Mass Index 31.24 (82.55 kg, 162.56 cm) 08:02 Pain Scale: Adult iw MDM: 07:59 Medical Screening Exam initiated aaron 08:19 Medical Screening Exam initiated aaron 08:52 Differential diagnosis: cardiac arrhythmia, CVA, generalized weakness, idiopathic aaron dizziness, near-syncope, TIA. Data reviewed: vital signs, nurses notes, lab test result(s), EKG, radiologic studies, CT scan. Consideration of Admission/Observation Escalation of care including admission/observation considered. I considered the following discharge prescriptions or medication management in the emergency department Medications were administered in the Emergency Department. See MAR. Independent interpretation of the following test(s) in the Emergency Department EKG: See my EKG interpretation above. Test considered but Not performed: MRI: no mri brain. Historians other than the Patient: Family Member: daughter well informed. Care significantly affected by the following chronic conditions: none. 07/28 08:02 Order name: CBC with Diff; Complete Time: :33 [facility] 07/28 08:02 Order name: Comprehensive Metabolic Panel; Complete Time: 09:33 [facility] 07/28 08:02 Order name: Troponin High Sensitivity; Complete Time: : [facility] 07/28 08:02 Order name: Urinalysis w/ reflexes [facility] 07/28 08:02 Order name: PREGU [facility] 07/28 10:01 Order name: Urine Culture [facility]GA 07/28 08:02 Order name: CT Head Brain wo Cont; Complete Time: :33 [facility] 07/28 08:02 Order name: EKG - Nurse/Tech; Complete Time: 08:29 [facility] EC:59 Rate is 72 beats/min. Rhythm is regular. QRS Clarence is Normal. OR interval is normal. QRS aaron interval is normal. QT interval is normal. No Q waves. T waves are Normal. No ST changes noted. Clinical impression: Normal ECG and No evidence of ischemia. Interpreted by me. Reviewed by me. Administered Medications: 08:29 Drug: NS 0.9% IV 1000 ml IV at 1000 ml once; to be given as a bolus over 60 minutes kc6 Route: IV; Rate: 1000 ml; Site: right forearm; 10:20 Follow up: Response: No adverse reaction; IV Status: Completed infusion; IV Intake: kc6 1000ml 08:29 Drug: Ondansetron IVP 4 mg IVP once; over 2 minutes Route: IVP; Site: right forearm; kc6 09:44 Follow up: Response: No adverse reaction kc6 08:29 Drug: Meclizine PO 50 mg PO once Route: PO; kc6 09:44 Follow up: Response: No adverse reaction kc6 10:08 Drug: Rocephin IV 1 grams IV at per protocol once; Given slow IV push per pharmacy kc6 instructions Route: IV; Rate: per protocol; Site: right antecubital; 10:20 Follow up: Response: No adverse reaction; IV Status: Completed infusion; IV Intake: [id number] 10:08 Drug: Amoxicillin-Clavulanate PO 875 mg PO once Route: PO; kc6 10:20 Follow up: Response: No adverse reaction kc6 Disposition Summary: 07/28/24 09:34 Discharge Ordered Notes: Location: Home aaron Problem: new aaron Symptoms: have improved aaron Condition: Stable aaron Diagnosis - Dizziness and giddiness aaron - Benign paroxysmal vertigo, unspecified ear aaron - Nausea aaron - Acute pansinusitis aaron Followup: aaron - With: Private Physician - When: 2 - 3 days - Reason: Recheck today's complaints, Continuance of care, Re-evaluation by your physician Followup: aaron - With: Reed Boyce MD - When: 2 - 3 days - Reason: Recheck today's complaints, Re-evaluation by your physician Discharge Instructions: - Discharge Summary Sheet aaron - Benign Positional Vertigo aaron - Dizziness aaron - Nausea, Adult aaron - Sinusitis, Adult aaron - Vertigo aaron - Sinusitis, Adult, [id number] aaron - Vertigo, [id number] aaron - Aspirin and Your Heart aaron - Dizziness, [id number] aaron Forms: - Medication Reconciliation Form aaron - Antibiotic Education aaron - Prescription Opioid Use aaron - Patient Portal Instructions aaron - Leadership Thank You Letter aaron Prescriptions: - ondansetron 4 mg Oral Tablet,disintegrating - take 1 tablet ORAL route every 6-8 hours for 5 days prn nausea/ vomiting; 20 aaron tablet; Refills: 0, Product Selection Permitted - Augmentin 875-125 mg Oral Tablet - take 1 tablet ORAL route every 12 hours for 10 days; 20 tablet; Refills: 0, aaron Product Selection Permitted - Meclizine 25 mg Oral tablet - take 1 tablet ORAL route every 6 hours As needed prn, dizziness; 30 tablet; aaron Refills: 0, Product Selection Permitted - Fluconazole 200 mg Oral tablet - take 1 tablet ORAL route one time repeat in 1 week if needed; 2 tablet; aaron Refills: 0, Product Selection Permitted Signatures: Dispatcher [employer] EDMS Abdi Gorman MD MD cha Williams, Irene, RN RN iw Campbell, Kaitlyn, RN RN kc6 Corrections: (The following items were deleted from the chart) 08:03 08:03 CBC+H.LAB.BRZ ordered. EDMS EDMS 08:03 08:03 COMPREHENSIVE METABOLIC PANEL+C.LAB.BRZ ordered. EDMS EDMS 08:03 08:03 Troponin High Sensitivity+C.LAB.BRZ ordered. EDMS EDMS 08:03 08:03 Urinalysis+U.LAB.BRZ ordered. EDMS EDMS 08:03 08:03 Test, Urine+UC.LAB.BRZ ordered. EDMS EDMS 08:03 08:03 Head Brain Wo Cont+CT.RAD.BRZ ordered. EDMS EDMS
[2024-07-28 09:55] LABS: Specific Gravity 1.008 (1.005-1.030)
[2024-07-28 09:58] LABS: Specific Gravity 1.008 (1.005-1.030); Sqamous Epithelial None Seen /HPF (None Seen); Urine Bacteria 20-50 /HPF (<20); Urine Bilirubin NEGATIVE (Negative); Urine Blood Negative (Negative); Urine Clarity Turbid (Clear); Urine Color Light-Yellow (Yellow); Urine Culture Reflex Order REFLEXED; Urine Glucose NEGATIVE (Negative); Urine Ketones NEGATIVE (Negative); Urine Microscopic Reflex YN ORDER UMIC; Urine Mucus Slight /HPF (None Seen); Urine Nitrite 2+ (Negative); Urine Protein NEGATIVE (Negative); Urine RBC <5 /HPF (None Seen); Urine Urobilinogen Normal (Normal); Urine pH 6.5 (5.0-7.0)
[2024-07-28] MEDS ORDERED: CEFTRIAXONE 1000 MG/VIAL ONE (10:02)
[2024-07-28] MEDS ORDERED: AMOX/K CLAV 875 MG TAB ONE (10:03)
[2024-07-28 10:56] VITALS: BP 135/90; TEMP 97.6; O2SAT 99
--- NOTE | 2024-07-29 11:09 | EKG ---
Test Date: 2024-07-28 Test Time: 08:15:46 [employer] Consultant: [employer] MEASUREMENT RESULTS: Intervals: Rate: 72 ID: [id number] QRSD: 94 QT: 386 QTc: 422 [place]: P: 5 ID: [id number] QRS: 72 T: 19 INTERPRETIVE STATEMENTS: Normal sinus rhythm Normal ECG No previous ECG available for comparison Electronically Signed On 07-29-24 11:07:17 COLD [employer]W OPERATOR by Rajeev Plaza
== END 2024-07-28 10:26 | disposition home or self-care (01) ==
LOC: ER 07:53
DX: H81.10 Benign paroxysmal vertigo, unspecified ear (principal); R11.0 Nausea; J01.40 Acute pansinusitis, unspecified
CPT/HCPCS: 93005; 87088; 85025; 81001; 87086; 36415; 81025; 87077; 87186; 84484; 80053; 70450; 99284; J8597; J2405; J7030; J0696